=== PATIENT | female | born 1950 | race Caucasian/White ===

== ENCOUNTER 2018-10-28 22:31 | Inpatient (IN) ==
[2018-10-28] MEDS ORDERED: MORPHINE IV ONE (23:21)
[2018-10-28] MEDS ORDERED: ZOFRAN IV ONE (23:21)
[2018-10-28] MEDS ORDERED: NS 1,000 ML IV ONE (23:22)
[2018-10-29 00:01] LABS: BASO# 0.02 X1000 (0.0-0.2); BASO% 0.1 % (0.0-0.8); EOS# 0.18 X1000 (0.0-0.7); EOS% 1.2 % (0.0-10.0); HEMATOCRIT 40.6 % (37.0-47.0); HEMOGLOBIN 12.8 g/dL (12.0-16.0); LYMPH# 1.67 X1000 (1.2-3.4); LYMPH% 10.8 % (20.5-51.1); MCH 24.4 PG (27-31); MCHC 31.5 g/dL (33-37); MCV 77.3 FL (81-99); MONO# 0.76 X1000 (0.11-0.59); MONO% 4.9 % (1.7-9.3); MPV 10.4 FL (7.4-10.4); NEUT# 12.89 X1000 (1.4-6.5); PLT 410 X1000 (130-400); RBC 5.25 XMIL (4.2-5.4); RDW 20.7 % (11.5-14.5); WBC 15.52 X1000 (4.8-10.8)
[2018-10-29 00:39] LABS: ALB/GLOB RATIO 1.5; ALBUMIN 4.3 g/dL (3.5-5.0); CALCIUM 10.1 mg/dL (8.8-10.2); POTASSIUM 4.4 mmol/L (3.5-5.1); TOTAL BILIRUBIN 0.48 mg/dL (0.20-1.00); TOTAL PROTEIN 7.2 g/dL (6.3-8.3)
--- NOTE | 2018-10-29 03:36 | PROVIDER DOCUMENTATION ---
This chart was entered by Shanique Ryder Scribe, acting as scribe for Primo Stewart MD. HPI-Abdominal Pain/GI Problem - General Chief Complaint: Constipation Stated Complaint: POSS. BOWEL OBSTRUCTION Time Seen by Provider: 10/28/18 22:57 Source: patient Allergies/Adverse Reactions: Patient Allergies Allergy/AdvReac Type Severity Reaction Status Date / Time aspirin AdvReac NAUSEA Verified 05/19/18 04:06 Sulfa (Sulfonamide AdvReac RASH Verified 05/19/18 04:06 Antibiotics) Home Medications: Home Medication List Medication Instructions Recorded Confirmed Last Taken Type Duloxetine [Cymbalta] 60 mg PO DAILY 02/27/14 05/19/18 05/18/18 History Glipizide [Glucotrol] 10 mg PO BID 02/27/14 05/19/18 05/18/18 History Losartan/Hctz [Hyzaar 50/12.5 mg] 1 cap PO DAILY 02/27/14 05/19/18 05/18/18 History Insulin Glargine/Lixisenatide 30 units SQ DAILY 04/27/18 05/19/18 05/18/18 History [Soliqua 100 Unit-33 Mcg/ml Pen] Metformin [Glucophage] 1,500 mg PO DAILY 04/27/18 05/19/18 05/18/18 History Fluticasone 50 Mcg Nasal Drums 2 spray DANIELA DAILY 04/28/18 05/19/18 05/18/18 History [Flonase] Hydrocodone/APAP 5 mg/325 mg 1 tab PO 4XDAY 04/28/18 05/19/18 05/18/18 History [Downey-5] Budesonide/Formoterol Inhaler 2 puff INH RTBID 04/29/18 05/19/18 05/18/18 History [Symbicort 160/4.5 Microgm Inhaler] Amlodipine [Norvasc] 5 mg PO HS #60 tab 05/03/18 05/19/18 05/18/18 Rx Apixaban [Eliquis] 5 mg PO BID #60 tab 05/03/18 05/19/18 05/18/18 Rx Diltiazem C.d. [Cardizem Cd] 120 mg PO DAILY #30 cap 05/03/18 05/19/18 05/18/18 Rx Docusate Sodium [Colace] 100 mg PO BID #60 cap 05/19/18 Unknown Rx - History of Present Illness-ABD Nature of Presenting Problems: Pt is 68/F presenting to ED w/ c/o abd pain, constipation and vomiting for the last 4 days. She reports that she has taken metamucil, milk of magnesia and magnesium citrate without any relief. Pt saw PCP yesterday Abdominal Pain Onset Location: reports: epigastric Pain Radiation: reports: no radiation Quality of Pain: reports: aching Severity in ED: reports: moderate Onset/Duration: reports: 5 days ago Timing: reports: still present Activities at Onset: reports: none Exposure to sick contacts?: No Modifying Factors: improves with: nothing Associated Symptoms: reports: constipation, nausea, vomiting. denies: diarrhea , fever/chills Last BM: unsure Dark Stools Present?: reports: none noticed Rectal Bleeding: reports: none Rectal Pain: reports: none Emesis Description: reports: other (yellow) Bruising or Bleeding Gums?: No Similar Symptoms Previously?: No Recently seen or treated by another doctor?: No Review of Systems - Adult - REVIEW OF SYSTEMS - ADULT Constitutional: reports: no symptoms reported. denies: chills, fever Eyes: reports: no symptoms reported Ears, Nose, Mouth & Throat: reports: no symptoms reported Cardiovascular: reports: no symptoms reported. denies: chest pain, edema Respiratory: reports: no symptoms reported Gastrointestinal: reports: abdominal pain, constipation, nausea, vomiting. denies: hematemesis, diarrhea Genitourinary: reports: no symptoms reported Musculoskeletal: reports: no symptoms reported Integumentary: reports: no symptoms reported Neurological: reports: no symptoms reported Psychiatric: reports: no symptoms reported Endocrine: reports: no symptoms reported Hematologic/Lymphatic: reports: no symptoms reported Allergic/Immunologic: reports: no symptoms reported All Other Systems: Reviewed and Negative Past History - Adult - PAST MEDICAL HISTORY-ADULT Review of Records: reports: Old Records Reviewed, Nursing Assessment Review, Medications Reviewed, Social history reviewed & non-contributory. Major Childhood Illnesses: reports: denies history Cardiovascular: reports: HTN Respiratory: reports: COPD Gastrointestinal: reports: denies history Obstetrical/Gynecological: reports: denies history Genitourinary: reports: denies history Musculoskeletal: reports: chronic pain Neurological: reports: denies history Psychiatric: reports: depression Endocrine/Immune: reports: Diabetes Other Conditions: reports: denies history - PRIOR SURGERIES/PROCEDURES Surgical/Procedure History: reports: cholecystectomy, orthopedic (extremity) - PRIOR HOSPITALIZATIONS Prior Hospitalizations: reports: none - IMMUNIZATION STATUS Childhood Immunizations: See Nurse Assessment Flu Vaccine: See Nurse Assessment - FAMILY HISTORY Family History: reviewed, not pertinent - SOCIAL HISTORY Smoking: quit greater than 1 year Substance Use: none/never Alcohol Use Frequency: occasionally Living Situation: family Physical Exam-General - PHYSICAL EXAM-ADULT Initial Vital Signs Reviewed: Yes - CONSTITUTIONAL General Appearance: appears well, alert, mild distress - EYES Eyes: PERRL/EOMI, pink conjunctivae - HEAD, EARS, NOSE, MOUTH & THROAT HENMT: normocephalic/atraumatic, moist mucous membranes, normal ENT inspection, TMs normal, pharynx normal - NECK Neck: non-tender, full range of motion, supple, normal inspection - RESPIRATORY Respiratory: chest non-tender, lungs clear, normal breath sounds - CARDIOVASCULAR Cardiovascular: normal peripheral pulses, regular rate, rhythm - GASTROINTESTINAL (ABDOMEN) Abdominal Exam: normal bowel sounds, non tender, soft - LYMPHATIC Lymphatic: no adenopathy - MUSCULOSKELETAL Extremity: normal range of motion, non-tender, normal gait, normal inspection - SKIN Integumentary: normal color, warm/dry - NEUROLOGIC Neurologic: grossly normal - PSYCHIATRIC Psych/Mental Status: normal mood/affect, normal thought content, normal thought process, oriented x 3 Progress - PLAN OF CARE/RESULTS Progress/Plan/Lab Results: Vital Signs - 8 hr 10/28/18 22:42 Temperature 97.8 F Pulse Rate 90 Respiratory Rate 18 Blood Pressure 179/62 O2 Sat by Pulse Oximetry 86 L Orders Category Date Time Status CT ABD/PELVIS W/PO AND IV CON [CT] Stat Exams 10/28/18 23:20 Ordered CBC WITH ELECTRONIC DIFF [HEME] Stat Lab 10/28/18 23:18 Uncollected COMPREHENSIVE METABOLIC PANEL [CHEM] Stat Lab 10/28/18 23:18 Uncollected LACTATE, PLASMA [CHEM] Stat Lab 10/28/18 23:18 Uncollected LIPASE [CHEM] Stat Lab 10/28/18 23:18 Uncollected TROPONIN T Stat Lab 10/28/18 23:20 Uncollected UA [URINALYSIS] [URINALYSIS] Stat Lab 10/28/18 23:18 Uncollected 0.9% Sodium Chloride Inj [Ns] 1,000 ml Med 10/28/18 23:22 Active IV 999 mls/hr Morphine Med 10/28/18 23:21 Discontinued 4 mg IV NOW ONE Ondansetron [Zofran] Med 10/28/18 23:21 Discontinued 4 mg IV NOW ONE CT shows obstruction of large ascending colon, will place NG tube and admit Result Diagrams: 10/28/18 23:30 10/28/18 23:30 Departure - Departure Date of Disposition Decision: 10/29/18 Time of Disposition Decision: 03:35 DIAGNOSIS: Large bowel obstruction Disposition: ADMITTED INPATIENT 09 Certified Medical Emergency: Emergent Condition: Stable Referrals and Follow-Ups: Wicho Ness MD [Primary Care Provider] - - Critical Care Note This patient required my direct & personal management of CC.: No Attestation - Physician/ PUMA Attestation Patient care was provided by Advanced Practice Provider:: No The physician spent face to face time with patient:: Yes Advanced Practice Provider documentation review:: Supervising physician onsite and consulted in the evaluation and care of this patient. The physician did have a face to face encounter with the patient. This chart was documented by the indicated scribe, (Shanique Ryder, Scribe) and accurately reflects the services I performed and decisions made by me, Primo Stewart MD, as attested by the provider's signature.
[2018-10-29 03:59] LABS: URINE SOURCE CLEAN CATCH
[2018-10-29 04:10] LABS: BILIRUBIN URINE NEGATIVE (NEGATIVE); BLOOD URINE NEGATIVE (NEGATIVE); COLOR YELLOW; GLUCOSE URINE NEGATIVE (NEGATIVE); KETONE URINE NEGATIVE (NEGATIVE); LEUKOCYTES URINE NEGATIVE (NEGATIVE); NITRITE URINE NEGATIVE (NEGATIVE); PROTEIN URINE TRACE mg/dL (NEGATIVE); SP GRAVITY URINE 1.036; TURBIDITY URINE CLEAR (CLEAR); UR EPITHELIAL CELLS <10 /HPF (<10); URINE BACTERIA NEGATIVE /HPF; URINE RBC <10 /HPF (<10); URINE WBC <10 /HPF (<10); UROBILINOGEN URINE NORMAL (NORMAL)
[2018-10-29] MEDS ORDERED: ZOSYN 3.375 GM in NS 50 ML IV ONE (04:38)
[2018-10-29] MEDS ORDERED: TYLENOL PO PRN (07:08)
[2018-10-29] MEDS: HUMALOG SUBQ SCH ×4 (07:08→21:51)
[2018-10-29] MEDS: NS 1,000 ML IV SCH ×3 (07:08→21:52)
--- NOTE | 2018-10-29 07:26 | HISTORY AND PHYSICAL ---
Patient of Dr. Wicho Ness. REASON FOR ADMISSION: One week history of nausea and vomiting and abdominal pain of 2 days. Ms. Juana Marti is a 68-year-old woman with past medical history of COPD and home O2, 3 liters, hypertension, type 2 diabetes, chronic kidney disease stage 3A, hiatal hernia, carpal tunnel syndrome and anxiety and depression. About a week ago developed intractable nausea and vomiting preceded by some abdominal pain. After vomiting, she said she felt a little bit better. However, 2 days later, she started having recurrent diffuse abdominal cramping pain and saw her primary care physician who ordered an abdominal x-ray. He informed her that she had a lot of stool and was probably constipated. So, she tried taking MiraLAX and mag citrate and threw these up. She also tried enemas without any success. As the days rolled on, the pain which was intermittent continued to escalate in intensity and she was unable to keep any food down. She then presented to the ER to be evaluated further for this. Her last bowel movement was approximately a week ago. She has denied any bleeding from any orifice. She denies any fever or chills per se. She denies any genitourinary complaints. Her last colonoscopy was 4-5 years ago. She denies any weight loss. She denies any cardiorespiratory complaints or neurological complaints. Denies any genitourinary complaints. No polyuria or polydipsia. No new arthralgia or rash. REVIEW OF SYSTEMS: A 12 system review was done. Positive findings per HPI. ALLERGIES: Aspirin and sulfa. HOME MEDICATIONS: List has not been reconciled. PAST MEDICAL HISTORY: The patient does have a history of paroxysmal atrial fibrillation. FAMILY HISTORY: Negative for cancer, heart disease and type 2 diabetes. SURGICAL HISTORY: She has had cholecystectomy. She has had pins in her great toe. She had full teeth extraction for dentures. She has had carpal tunnel surgery. SOCIAL HISTORY: Stopped smoking about 6 years ago. No alcohol or illicit drug use. She is , lives with her . LAB WORK: CT scan of the abdomen showed possible obstruction of the ascending colon with some degree of small bowel dilatation. Urinalysis is clear. AST, ALT 193 and 120 respectively. Alkaline phosphatase 213. Troponin negative. Lactate normal. Lipase normal. Glucose 135. White count 15,000, H and H 12 and 40. Platelets 410,000. RDW of 20, 83% neutrophils. PHYSICAL EXAMINATION: VITAL SIGNS: Blood pressure 161/49, respiratory rate is 18, heart rate is 67, temperature is 97.8 degrees, 92% on room air. GENERAL: She is a middle-aged woman who is in mild distress from abdominal pain. She is alert and oriented to person, place and time. HEENT: Head is normocephalic, atraumatic. Eyes: PERRL, EOMI. She is nonicteric, mildly pale. ENT and oropharyngeal exam shows mild xerostomia but otherwise no exudates or erythema. No central cyanosis. NECK: Short and thick. No JVD, carotid bruits. No thyromegaly. CHEST: Decreased air entry both lung arevalo with scattered expiratory wheezes. CARDIOVASCULAR: First and second heart sounds heard. No gallops, murmurs or rubs. Rhythm is irregular. ABDOMEN: Slightly distended, soft, diffusely tender with no rebound or guarding. The tenderness is most noticeable in the right lower quadrant area. No mass or megaly appreciated. Bowel sounds are hyperactive. RECTAL: Exam is deferred. EXTREMITIES: The patient has good distal pulse volumes in all extremities. Rhythm is regular, symmetrical. No edema, clubbing or peripheral cyanosis. NEUROLOGICAL: No focal deficits. SKIN: Intact with no breakdown or erythema. Good turgor. MUSCULAR: Grossly normal. ASSESSMENT: 1. Ascending colon obstruction. 2. COPD. 3. Type 2 diabetes. 4. Hypertension. 5. Paroxysmal atrial fibrillation. 6. Transaminitis ? probably secondary to intractable vomiting. PLAN: Patient will have IV fluid resuscitation to make up for volume losses from GI losses. We will start patient empirically on antibiotics for possible maybe stercoral colitis from obstruction. Consult General Surgery for possible surgical intervention and may consider GI for possible colonoscopy if patient is cleaned out. Treat patient symptomatically with pain medication and antiemetics. Blood sugars will be managed with sliding scale and Lantus. For rate control, patient may benefit from IV Digoxin with low dose pushes of Cardizem. Anticoagulation will be held in the interim. cc: MD iWcho English
--- NOTE | 2018-10-29 08:01 | Diag Imaging Result Doc PS360 ---
CHEST/ABD TUBE PLACEMENT - 10/29/2018 INDICATION: check NG tube placement COMPARISON: 10/27/2018 FINDINGS: There is a nasogastric tube in good position with the tip in the stomach. IMPRESSION: Nasogastric tube in the stomach. Electronically signed by Felice Chambers 10/29/2018 7:58 AM
--- NOTE | 2018-10-29 08:05 | Diag Imaging Result Doc PS360 ---
EXAM: CT ABD/PELVIS W/PO AND IV CON INDICATION: n/v, no BM, r/o SBO TECHNIQUE: This exam was performed using automated exposure control, adjustment of mA or kV according to patient size, and/or use of iterative reconstruction technique. COMPARISON: 05/19/2018 FINDINGS: There are emphysematous changes at the lung bases. There is mild bibasilar subsegmental atelectasis and/or scarring. There has been a prior cholecystectomy. The liver and spleen are grossly unremarkable. There is mild pancreatic atrophy. There is a stable tiny fat density left adrenal nodule, likely a myelolipoma. The kidneys and urinary bladder are essentially unremarkable. The reproductive tract is grossly unremarkable as imaged. The appendix is normal. There is focal narrowing of the ascending colon with subtle wall thickening (see image 74, series 3). Proximal to this, the colon is mildly dilated. There is also multiple mild to moderately distended loops of small bowel including the terminal ileum. There is mild pericolonic fat stranding in the right lower quadrant. There is uncomplicated sigmoid colonic diverticulosis. The remainder of the GI tract is grossly unremarkable. There is small volume free fluid layering in the pelvis. IMPRESSION: 1.Mild to moderate partial bowel obstruction. The point of obstruction appears to be the ascending colon where there is focal narrowing and subtle wall thickening. Infection or underlying neoplastic process should be considered. 2.Small volume of free fluid layering in the pelvis. 3.Other incidental/nonacute findings detailed above. Electronically signed by Ochoa Burton 10/29/2018 8:03 AM
[2018-10-29] MEDS: BASAGLAR SUBQ SCH ×2 (08:50→09:00)
[2018-10-29] MEDS: DUONEB (A & A) INH SCH ×3 (09:48→22:35)
--- NOTE | 2018-10-29 14:16 | Diag Imaging Result Doc PS360 ---
EXAM: BARIUM ENEMA INDICATION: colonic stricture TECHNIQUE: Water-soluble iodinated contrast was administered per rectum under fluoroscopy. Spot images of the opacified colon were obtained. COMPARISON: CT dated 10/29/2018. FINDINGS: The sigmoid, descending, and transverse colon are normal in course and caliber with no filling defects or strictures identified. There is abrupt narrowing involving the ascending colon just proximal to the hepatic flexure and no contrast could be passed proximal to this. (See page 14 of 20). This corresponds to the stricture seen on the recent CT. Proximal to this, there is stool in the distended cecum and ascending colon. IMPRESSION: Abrupt narrowing involving the distal ascending colon corresponding to the stricture seen on CT with no contrast egress proximal to this. Electronically signed by Ochoa Burton 10/29/2018 2:14 PM
[2018-10-29] MEDS: ZOSYN 3.375 GM in NS 50 ML IV SCH ×2 (14:26→21:51)
[2018-10-29] MEDS: ZOFRAN IV PRN (14:53)
[2018-10-29] MEDS: MORPHINE IV PRN ×3 (14:53→22:18)
--- NOTE | 2018-10-29 15:30 | GENERAL SURGERY CONSULTATION ---
DATE: 10/29/2018 REQUESTING PHYSICIAN: Hospitalist. REASON FOR CONSULTATION: Concerning possible colonic stricture. HISTORY OF PRESENT ILLNESS: A 68-year-old female presenting with a couple day history of abdominal pain. She was seen in the emergency department and had a CT scan that showed a potential colonic stricture at the ascending colon. She has been admitted. She does describes recurrent diffuse abdominal cramping. She reports that her bowel movements have always been small. She had a colonoscopy at least [address] Pat and apparently no pathology at that point. I have been asked to weigh an opinion. She is feeling a little bit better since admission. PAST MEDICAL HISTORY: Includes COPD with home oxygen, hypertension, diabetes mellitus type 2, chronic kidney disease, hiatal hernia, carpal tunnel syndrome, anxiety and depression. PAST SURGICAL HISTORY: Includes cholecystectomy, previous orthopedic surgery, carpal tunnel surgery. HOME MEDICATIONS: Currently being reconciled. ALLERGIES: Aspirin and sulfa. FAMILY HISTORY: Negative for cancer, heart disease, or diabetes. SOCIAL HISTORY: Stopped smoking 6 years ago. REVIEW OF SYSTEMS: A full 10 point review of systems obtained, negative except as specified in the HPI. PHYSICAL EXAMINATION: Vital Signs: Patient is currently afebrile. Her vital signs are stable. General: No acute distress. Resting comfortably. female, looks stated age. HEENT: Normocephalic, atraumatic. Pupils equal, round, reactive to light. Mucous membranes moist. Oropharynx benign. Neck: Supple. Trachea midline. Cardiovascular: Regular rate and rhythm. Lungs: Grossly clear. Abdomen: Soft, nondistended. Minimal tenderness to palpation. Extremities: Moves all extremities. Neurologic: Grossly intact. Skin: No signs of jaundice. Vascular: All extremities perfused. LABORATORY DATA: Reviewed. Of note, her white blood cell count is 15. Remainder of labs reviewed. CT scan independently reviewed and radiology report reviewed, discussed with radiologist. ASSESSMENT AND PLAN: A 68-year-old female with possible colonic stricture. Possible colonic stricture. At this point, given this setting, we will try to get a barium enema to define if there is a stricture or mass better. Otherwise, continue current treatment with bowel decompression. She does have what looks like fecalization of the cecum and she might be chronically obstructed in this area. She may need surgical resection. Would like to define the anatomy better. This was all discussed with the patient. I have discussed it with Dr. Chambers with Radiology, who is going to try to do the barium enema today. cc: Steve Burns MD
--- NOTE | 2018-10-29 23:29 | GENERAL SURGERY PROGRESS NOTE ---
DATE: 10/29/2018 Reviewed barium enema. She does have a stricture looks like in her ascending colon. The etiology of this is unclear. This could represent stricture from ischemia, diverticulitis or even potentially a cancer. The patient did tell me that she has been on Eliquis and she last took it 2 days ago. I think ultimately she will require some degree of resection of this area. In the meantime we can monitor and potentially plan on surgery on Thursday. cc: Steve Burns MD MTDD
[2018-10-30] MEDS: ZOSYN 3.375 GM in NS 50 ML IV SCH ×4 (02:01→20:13)
[2018-10-30] MEDS: DUONEB (A & A) INH SCH ×4 (03:05→21:25)
[2018-10-30] MEDS: MORPHINE IV PRN ×6 (05:57→23:59)
[2018-10-30 07:16] LABS: BASO# 0.01 X1000 (0.0-0.2); BASO% 0.1 % (0.0-0.8); EOS# 0.13 X1000 (0.0-0.7); EOS% 1.6 % (0.0-10.0); HEMATOCRIT 37.7 % (37.0-47.0); HEMOGLOBIN 11.3 g/dL (12.0-16.0); LYMPH# 0.91 X1000 (1.2-3.4); MCH 24.1 PG (27-31); MCV 80.6 FL (81-99); MONO# 0.41 X1000 (0.11-0.59); MPV 10.4 FL (7.4-10.4); NEUT% 82.3 % (42.2-75.2); PLT 399 X1000 (130-400); RBC 4.68 XMIL (4.2-5.4); RDW 20.1 % (11.5-14.5); WBC 8.26 X1000 (4.8-10.8)
[2018-10-30] MEDS: HUMALOG SUBQ SCH ×3 (07:39→17:33)
[2018-10-30 07:40] LABS: HEMOGLOBIN A1C 6.1 % (4.8-6.0)
[2018-10-30 07:43] LABS: AGAP 11; ALB/GLOB RATIO 1.2; ALBUMIN 3.5 g/dL (3.5-5.0); ALKALINE PHOSPHATASE 339 U/L (32-104); BUN 8 mg/dL (8-22); CALCIUM 9.2 mg/dL (8.8-10.2); CHLORIDE 100 mmol/L (98-107); COSMO 275; CREATININE 0.9 mg/dL (0.5-0.9); ESTIMATED GFR > 60; GLUCOSE 87 mg/dL (70-104); GOT 235 U/L (10-30); GPT 226 U/L (10-36); MAGNESIUM 1.6 mg/dL (1.5-2.7); POTASSIUM 4.2 mmol/L (3.5-5.1); SODIUM 139 mmol/L (136-145); TCO2 28 mmol/L (25-35); TOTAL BILIRUBIN 1.28 mg/dL (0.20-1.00); TOTAL IRON 56 ug/dL (49-151); TOTAL PROTEIN 6.4 g/dL (6.3-8.3)
[2018-10-30 07:59] LABS: TSH 1.79 uIUmL (0.27-4.20)
[2018-10-30] MEDS: BASAGLAR SUBQ SCH (08:55)
--- NOTE | 2018-10-30 11:26 | PROGRESS NOTE ---
DATE: 10/30/2018 SUBJECTIVE: Patient reports feeling fine. Denies any fever, chills, nausea, or vomiting. The patient reports having some brown colored bowel movements, and also she is passing gas. OBJECTIVE: Vital Signs: Temperature 98.3 degrees, heart rate 80, respiratory rate 18, blood pressure 158/59, and O2 saturation 95% on 2 L nasal cannula. General: This is a very pleasant, chronically ill-looking, 68-year-old female lying in bed in no acute distress. HEENT: Head is normocephalic and atraumatic. Neck: No JVD noted. No carotid bruits. No lymphadenopathy. No thyromegaly. Cardiovascular: S1, S2 heard. No murmurs, gallops, or rubs. Regular rate and rhythm. Respiratory: Decreased air entry globally. Minimal expiratory wheezing noted. Patient is not using any accessory muscles or having work of breathing. Abdomen: A little bit distended. There are no signs of peritoneal irritation. Tenderness to palpation in the right lower quadrant. Bowel sounds are hyperactive. Extremities: No clubbing, cyanosis, or edema. Peripheral pulses present in both legs. Neurological: Patient alert and oriented x3. Moves 4 extremities. LABORATORY DATA: White cell count 8.26, hemoglobin 11.3, hematocrit 37.7, and platelets 399,000. Normal BMP. Liver function test showed worsening AST and ALT elevation with elevation of alkaline phosphatase. The barium enema showed abrupt narrowing involving the distal ascending colon corresponding to a stricture seen on the CT with no contrast that progressed proximal to this. ASSESSMENT AND PLAN: 1. Ascending colon obstruction. The CT scan on the barium enema showed both strictures in the ascending colon. Dr. Burns from General Surgery has been consulted. I am planning to do possible surgery next Thursday. The patient reports she has taken last time Eliquis probably last Thursday which will be a week from now, but she is not completely sure. I think she should be fine to go for any procedure on Thursday. The patient reports passing gases with brownish-colored stools. We will continue to monitor this patient closely. 2. Transaminitis, that condition is getting worse. The patient reports has history of spot in the liver so our first exam that we are going to order is abdominal ultrasound to see if there are any lesions down there that the patient mentioned. We are going to do a CMP daily. If there is no clear imaging on the ultrasound, we may need to do MRCP on Thursday. 3. COPD. Patient is not in any exacerbation. We will provide breathing treatment as needed only. 4. Diabetes mellitus type 2. We will continue with Accu-Chek before meals, and also at bedtime, and sliding scale insulin as well. 5. Hypertension. Blood pressure is under control. The patient received medication IV p.r.n. We will continue to monitor. We will treat high blood pressure with p.r.n. medications like hydralazine. 6. Paroxysmal atrial fibrillation. At this point, patient's heart rhythm is fine in sinus rhythm. We will continue to monitor. 7. COPD not in exacerbation. We will provide breathing treatment as needed only. 8. Disposition. At this point, GI is going to be consulted. We will follow recommendations from them. cc: Sixto Morton MD MTDD
--- NOTE | 2018-10-30 12:03 | Diag Imaging Result Doc PS360 ---
EXAM: US ABDOMEN-COMPLETE INDICATION: transaminitis COMPARISON: None. FINDINGS: There has been a prior cholecystectomy. The common bile duct is normal in diameter. The liver is grossly unremarkable. No hepatic mass is identified Portal venous flow is hepatopetal. The pancreas is partially obscured by gas. The visualized portion is unremarkable. The distal aorta is also obscured. The remainder of the aorta and IVC are unremarkable. The spleen is unremarkable. The kidneys are grossly unremarkable. A right pleural effusion is noted incidentally. IMPRESSION: Incidental right pleural effusion. Unremarkable abdominal ultrasound, otherwise. Electronically signed by Ochoa Burton 10/30/2018 12:00 PM
--- NOTE | 2018-10-30 12:47 | GENERAL SURGERY PROGRESS NOTE ---
DATE: 10/30/2018 SUBJECTIVE: Patient seems to be doing okay. Discussed with her yesterday about the findings of the barium enema, which does show a stricture. Otherwise, she is doing okay. OBJECTIVE: Vital Signs: Patient is currently afebrile. Her vital signs are stable. General: No acute distress. HEENT: Normocephalic, atraumatic. Pupils equal, round, reactive to light. Mucous membranes moist. Oropharynx benign. Neck: Supple. Trachea midline. Cardiovascular: Regular rate and rhythm. Lungs: Grossly clear. Abdomen: Soft and nontender at this time. Extremities: Moves all extremities. Neurologic: Grossly intact. Skin: No signs of jaundice. Vascular: All extremities perfused. LABORATORY DATA: None this morning as of yet. Barium enema as noted yesterday. ASSESSMENT AND PLAN: A 68-year-old female with colonic stricture in the ascending colon of unknown etiology. Colonic stricture. At this time, we will plan on surgical intervention on Thursday. She has been taking Eliquis. We will need to give at least 5 days until that is out of her system, but plan on surgical intervention on that day. cc: Steve Burns MD
[2018-10-30] MEDS: NS 1,000 ML IV SCH (14:12)
--- NOTE | 2018-10-30 17:09 | CONSULTATION ---
DATE OF CONSULTATION: 10/30/2018 REASON FOR CONSULTATION: Colonic obstruction. 68-year-old lady with history of COPD on home oxygen presented with abdominal distention. Took some MiraLAX and magnesium titrate and had nausea and vomiting unable to keep anything down. She had a colonoscopy about 5 years ago. No previous history of any problems with this. REVIEW OF SYSTEMS: Otherwise negative. ALLERGIES: Aspirin and sulfa. HOME MEDICATION: Reconciled. PAST MEDICAL HISTORY: PAD, COPD, constipation. SURGICAL HISTORY: Cholecystectomy. SOCIAL HISTORY: Used to smoke until 6 years ago. PHYSICAL EXAMINATION: Revealed this lady in no acute distress. Blood pressure 160/49, respiratory rate 18, heart rate 67, temperature 97 degrees, 92%.HEENT: Mild conjunctival pallor. Neck: Supple, trachea midline. Heart and lungs: Normal. Abdomen: Distended, some tenderness in the right upper quadrant. Bowel sounds are present. Extremities: Unremarkable. LABORATORY DATA: Shows LFTs are slightly elevated. White count is 15 K and hemoglobin and hematocrit are normal and had a barium enema showed a high-grade stricture in the ascending colon proximal to the hepatic flexure which is again seen in the CT scan of the abdomen. On the CT the liver appears to be normal with no evidence of metastatic disease. IMPRESSION: 1. Ascending colon high grade obstruction who has improved bowel movements now with prep. This could be more likely neoplastic. Will plan on doing a colonoscopy Thursday so Dr. Burns can do right hemicolectomy even otherwise the right colon is probably distended, she is better off with right hemicolectomy. 2. Chronic obstructive pulmonary disease. 3. Diabetes. 4. Hypertension. 5. Peripheral artery disease. 6. Elevated liver function tests being investigated. We will start her on MiraLAX, possible colonoscopy Thursday. cc: Librado Bruno MD
[2018-10-31] MEDS: NS 1,000 ML IV SCH ×5 (00:01→21:46)
[2018-10-31] MEDS: HUMALOG SUBQ SCH ×5 (01:33→21:54)
[2018-10-31] MEDS: DUONEB (A & A) INH SCH ×4 (03:18→21:05)
[2018-10-31] MEDS: ZOSYN 3.375 GM in NS 50 ML IV SCH ×4 (04:04→20:21)
[2018-10-31] MEDS: MORPHINE IV PRN ×2 (04:15→08:12)
[2018-10-31] MEDS: ZOFRAN IV PRN ×4 (04:16→21:47)
[2018-10-31] MEDS ORDERED: LABETALOL IV ONE (05:28)
[2018-10-31 06:44] LABS: BASO# 0.02 X1000 (0.0-0.2); BASO% 0.3 % (0.0-0.8); EOS# 0.13 X1000 (0.0-0.7); EOS% 1.8 % (0.0-10.0); HEMATOCRIT 36.5 % (37.0-47.0); HEMOGLOBIN 10.7 g/dL (12.0-16.0); IMM GRAN# 0.03 X1000 (0.0-0.04); IMM GRAN% 0.4 % (0.0-0.5); LYMPH# 0.93 X1000 (1.2-3.4); LYMPH% 13.2 % (20.5-51.1); MCH 23.6 PG (27-31); MCHC 29.3 g/dL (33-37); MCV 80.4 FL (81-99); MONO# 0.45 X1000 (0.11-0.59); MONO% 6.4 % (1.7-9.3); MPV 10.1 FL (7.4-10.4); NEUT# 5.47 X1000 (1.4-6.5); NEUT% 77.9 % (42.2-75.2); PLT 379 X1000 (130-400); RBC 4.54 XMIL (4.2-5.4); RDW 19.8 % (11.5-14.5); WBC 7.03 X1000 (4.8-10.8)
--- NOTE | 2018-10-31 06:48 | GENERAL SURGERY PROGRESS NOTE ---
DATE: 10/31/2018 SUBJECTIVE: Patient seems to be doing okay. Reviewed notes from GI, there is a plan for colonoscopy tomorrow. OBJECTIVE: Vital Signs: Patient is currently afebrile. Her vital signs are stable. General: No acute distress. HEENT: Normocephalic, atraumatic. Pupils equal, round, reactive to light. Mucous membranes moist. Oropharynx benign. Neck: Supple. Trachea midline. Cardiovascular: Regular rate and rhythm. Lungs: Grossly clear. Abdomen: Soft, nontender, nondistended at this point. Extremities: Moves all extremities. Neurologic: Grossly intact. Skin: No signs of jaundice. Vascular: All extremities perfused. LABORATORY: None this morning as of yet. ASSESSMENT AND PLAN: A 68-year-old female with stricture at the ascending colon. Stricture of the ascending colon. At this time, continue current treatment. There is a plan for her to have a colonoscopy tomorrow. We will follow the results. She is still on the schedule for surgery from my point of view on Thursday. cc: Steve Burns MD
[2018-10-31 07:32] LABS: AGAP 12; BUN 10 mg/dL (8-22); CALCIUM 8.7 mg/dL (8.8-10.2); CHLORIDE 100 mmol/L (98-107); COSMO 279; CREATININE 0.8 mg/dL (0.5-0.9); ESTIMATED GFR > 60; GLUCOSE 174 mg/dL (70-104); POTASSIUM 4.2 mmol/L (3.5-5.1); SODIUM 138 mmol/L (136-145); TCO2 26 mmol/L (25-35)
[2018-10-31] MEDS: BASAGLAR SUBQ SCH (09:19)
[2018-10-31 10:47] LABS: ALB/GLOB RATIO 1.1; ALBUMIN 3.4 g/dL (3.5-5.0); DIRECT BILIRUBIN 0.3 mg/dL (0.00-0.20); TOTAL BILIRUBIN 0.55 mg/dL (0.20-1.00); TOTAL PROTEIN 6.4 g/dL (6.3-8.3)
[2018-10-31] MEDS ORDERED: SODIUM CHLORIDE 0.9% INJ PRN (10:50)
[2018-10-31] MEDS: DILAUDID IV PRN ×3 (11:09→21:46)
--- NOTE | 2018-10-31 11:37 | PROGRESS NOTE ---
DATE: 10/31/2018 SUBJECTIVE: Patient is not doing good today. Patient started complaining of back pain that I am suspecting is coming probably from the descending colon. She was placed on GoLYTELY for preparation for colonoscopy tomorrow, but she did vomit so NG tube has been placed to suction. OBJECTIVE: Vital Signs: Temperature 97.9 degrees, heart rate 87, respiratory rate 18, blood pressure 155/59, O2 saturation 97% on 3 L nasal cannula. General: This is a chronically ill- looking 68-year-old female, lying in bed, in no acute distress. HEENT: Head is normocephalic, atraumatic. Neck: No JVD noted. No carotid bruits. No lymphadenopathy. No thyromegaly. Cardiovascular: S1, S2 heard. No murmurs, gallops, or rubs. Regular rate and rhythm. Respiratory: Decreased air entry globally with almost no wheezing in both pulmonary bases. Patient not using any accessory muscles or having work of breathing. Abdomen: Soft. A little bit more distended in comparing with yesterday. There are no signs of peritoneal irritation. Tender to palpation in the left lower quadrant. Extremities: No clubbing, cyanosis, or edema. Peripheral pulses present in both legs. Neurological: Patient is alert and oriented x3. Moves 4 extremities. LABORATORY DATA: White cell count 7.03, hemoglobin 10.7, hematocrit 36.5, platelets 379,000. Normal BMP. AST 100, ALT 170, alkaline phosphatase 283. ASSESSMENT AND PLAN: 1. Ascending colon obstruction, most likely secondary to neoplastic process. Gastroenterology has been consulted, and they are planning to do a colonoscopy tomorrow. Unfortunately the GoLYTELY that she has been given was not tolerated by the patient, and she vomited so the NG tube has been placed to suction. On the other side, Dr. Burns from General Surgery is planning to do a right hemicolectomy on Thursday. We will follow recommendations. From my standpoint, I will change pain medications to Dilaudid 1 mg IV q.3 h. We will continue to monitor this patient closely. 2. Transaminitis. This condition is getting better. I am not sure about the reason why she has this problem. Considering her history of colon cancer, I think we may suspect liver metastasis. At this point, with a CT scan that did not show anything abnormal, I do prefer to do an MRI of the abdomen to see if there any lesions on there. 3. Chronic obstructive pulmonary disease (COPD). Patient is not in any exacerbation. We will provide breathing treatments as needed only for shortness of breath. 4. Diabetes mellitus, type 2. We will continue with Accu-Cheks before meals and also at bedtime and sliding scale insulin as well. 5. Hypertension. Blood pressure is under control. We will continue with p.r.n. medications, in this case hydralazine. 6. Paroxysmal atrial fibrillation. Heart rhythm is sinus. We will continue to monitor. DISPOSITION: At this point, we will monitor this patient closely. Surgery is scheduled for Thursday, a hemicolectomy. Gastroenterology is also following this patient. We will do an MRI tomorrow for transaminitis, most presumable secondary to liver metastasis. cc: Sixto Morton MD
[2018-10-31] MEDS: ZOSYN ONE ×2 (15:08→17:21)
[2018-10-31] MEDS ORDERED: GOLYTELY PO ONE (16:00)
[2018-10-31] MEDS: PHENERGAN IV PRN (17:43)
[2018-11-01] MEDS: DILAUDID IV PRN ×2 (01:07→05:11)
[2018-11-01] MEDS: PROTONIX IV SCH ×4 (01:15→21:06)
[2018-11-01] MEDS: SODIUM CHLORIDE 0.9% INJ SCH ×3 (01:15→20:57)
[2018-11-01] MEDS: ZOSYN 3.375 GM in NS 50 ML IV SCH ×4 (02:45→20:56)
[2018-11-01] MEDS: DUONEB (A & A) INH SCH ×4 (03:30→21:35)
[2018-11-01] MEDS: NS 1,000 ML IV SCH ×3 (05:11→20:56)
[2018-11-01] MEDS: PHENERGAN IV PRN (05:12)
[2018-11-01 06:39] LABS: BASO# 0.02 X1000 (0.0-0.2); BASO% 0.2 % (0.0-0.8); EOS# 0.11 X1000 (0.0-0.7); EOS% 1.3 % (0.0-10.0); HEMATOCRIT 35.7 % (37.0-47.0); HEMOGLOBIN 10.7 g/dL (12.0-16.0); IMM GRAN# 0.02 X1000 (0.0-0.04); IMM GRAN% 0.2 % (0.0-0.5); LYMPH# 1.44 X1000 (1.2-3.4); LYMPH% 16.5 % (20.5-51.1); MCH 24.1 PG (27-31); MCV 80.4 FL (81-99); MONO# 0.59 X1000 (0.11-0.59); MONO% 6.8 % (1.7-9.3); MPV 10.3 FL (7.4-10.4); NEUT# 6.56 X1000 (1.4-6.5); PLT 425 X1000 (130-400); RBC 4.44 XMIL (4.2-5.4); RDW 19.7 % (11.5-14.5); WBC 8.74 X1000 (4.8-10.8)
--- NOTE | 2018-11-01 06:51 | GENERAL SURGERY PROGRESS NOTE ---
DATE: 11/01/2018 SUBJECTIVE: The patient is doing okay. She tried a GoLYTELY prep yesterday, somewhat going down but she is having bowel movements. OBJECTIVE: Vital Signs: The patient is currently afebrile. Her vital signs are stable. General Examination: No acute distress. HEENT: Normocephalic, atraumatic. Pupils equal, round, reactive to light. Mucous membranes moist. Oropharynx benign. Neck: Supple. Trachea midline. Cardiovascular: Regular rate and rhythm. Lungs: Grossly clear. Abdomen: Soft, nondistended, nontender. Extremities: Moves all extremities. Neurologic: Grossly intact. Skin: No signs of jaundice. Vascular: All extremities perfused. Laboratory: Reviewed from yesterday. ASSESSMENT AND PLAN: A 68-year-old female with a colonic stricture. Colonic stricture. At this time, plan for colonoscopy today. We will follow up with the results and we may need to try to send it off a CEA today. Otherwise, continue supportive care. cc: Steve Burns MD MTDD
[2018-11-01 07:23] LABS: AGAP 16; ALB/GLOB RATIO 1.3; ALBUMIN 3.6 g/dL (3.5-5.0); ALKALINE PHOSPHATASE 231 U/L (32-104); BUN 8 mg/dL (8-22); CALCIUM 8.5 mg/dL (8.8-10.2); CHLORIDE 100 mmol/L (98-107); COSMO 280; CREATININE 0.7 mg/dL (0.5-0.9); ESTIMATED GFR > 60; GLUCOSE 109 mg/dL (70-104); GOT 57 U/L (10-30); GPT 130 U/L (10-36); POTASSIUM 3.9 mmol/L (3.5-5.1); SODIUM 141 mmol/L (136-145); TCO2 25 mmol/L (25-35); TOTAL BILIRUBIN 0.32 mg/dL (0.20-1.00); TOTAL PROTEIN 6.3 g/dL (6.3-8.3)
[2018-11-01] MEDS: HUMALOG SUBQ SCH ×4 (10:21→20:56)
[2018-11-01] MEDS: BASAGLAR SUBQ SCH (10:21)
--- NOTE | 2018-11-01 11:30 | GASTROENTEROLOGY PROGRESS NOTE ---
DATE: 11/01/2018 SUBJECTIVE: Patient resting in bed. She has an NG tube in place. It was hooked up to suction this morning because she was nauseous. She had taken about 80% of bowel prep. The bowel prep is still poor per the nursing staff. She is having liquid stools, but it is not clear. I have discussed with the patient and with Dr. Burns. We will schedule her for colonoscopy in the morning. Depending on the results of colonoscopy, the patient is scheduled for possible colon resection around [address] Burns. So we will try to schedule her as the 1st case in the morning with Dr. Moran. OBJECTIVE: Vitals: Temperature of 98.6 degrees, pulse rate of 94, respiratory rate 12, blood pressure 123/87, saturating 98% on 3 L nasal cannula. General Appearance: Moderately built, moderately nourished, lying in bed, in no acute distress. HEENT: Mild pallor. No icterus. NG tube in place. Neck: Supple. Abdomen: Soft, nondistended. No guarding. Extremities: No cyanosis, clubbing. Neurologic: She is alert, awake, oriented x3. LABORATORIES: Hemoglobin and hematocrit is 10.7, 35.7, white count of 8.7, platelet count of 425,000. Sodium 141, potassium 3.9, chloride 100, bicarb 25, anion gap 16, BUN of 8, creatinine 0.7 glucose of 109, calcium 8.5, total bilirubin is 0.32, direct of 0.2, AST 57, ALT 130. Alkaline phosphatase 231, total protein 6.3, albumin 3.6. IMPRESSION AND PLAN: 1. Ascending colon obstruction. We will schedule for colonoscopy tomorrow morning. The patient is scheduled for a possible right colon resection tomorrow by Dr. Burns around 10:00 a.m., so our goal will be to perform a colonoscopy 1st case in the morning by Dr. Moran. In the meanwhile, she will continue on the bowel prep. She will finish her 1st gallon. We will start her on 2nd gallon of GoLYTELY if the bowel prep is still suboptimal. She is currently on NG tube to intermittent suction because of persistent nausea. I have discussed this with Dr. Burns as well as the nursing staff and the patient. 2. Transaminitis. We will continue to watch for now. It may be she needs a liver biopsy at the same time of colon resection. 3. Chronic obstructive pulmonary disease. Aware. She will continue breathing treatments. 4. Type 2 diabetes. Aware. Continue sliding scale insulin. 5. Paroxysmal atrial fibrillation. Aware. 6. Mild anemia. Continue to watch. 7. Gastrointestinal prophylaxis. Protonix twice a day. 8. Continue hydration normal saline 125 mL/hour and she is on antibiotics per the primary care team. 9. We will order a CEA. 10. The above plans were discussed with the patient and nursing staff and Rebecca Bryant. All questions were answered. cc: Deon Benitez MD
[2018-11-01] MEDS ORDERED: CHLORASEPTIC SPRAY MT PRN (12:49)
[2018-11-01] MEDS: ZOFRAN IV PRN (12:54)
--- NOTE | 2018-11-01 13:38 | PROGRESS NOTE ---
DATE: 11/01/2018 SUBJECTIVE: The patient is resting in bed. Patient reports that pain is under control. Denies any other complaint. As per nursing staff, she was trying to be prepared for a colonoscopy but she vomited GoLYTELY yesterday. They tried the day before yesterday and actually yesterday but she vomited. No other complaints noted. OBJECTIVE: Vital Signs: Temperature 98.6 degrees, heart rate 94, respiratory rate 16, blood pressure 123/87, O2 saturation 97% on 2 L nasal cannula. General Examination: This is a chronically ill-looking, 68-year-old, female lying in bed, in no acute distress. HEENT: Head is normocephalic and atraumatic. Mucous membranes are dry. Neck: Supple. No JVD noted. No carotid bruits. No lymphadenopathy. No thyromegaly. Cardiovascular Examination: S1 and S2 heard. No murmurs, gallops, or rubs. Regular rate and rhythm. Respiratory Examination: Decreased air entry globally with no wheezing or crackles in both pulmonary bases. Patient is not using any accessory muscles or having work of breathing. Abdomen: Soft. A little bit more distended in comparing with yesterday but there are no signs of peritoneal irritation. Tender to palpation in the left lower quadrant. Extremities: No clubbing, cyanosis, or edema. Peripheral pulses present in both legs. Neurological Examination: The patient is alert and oriented x3. Moves 4 extremities. Laboratory Data: CBC and BMP reviewed. ASSESSMENT AND PLAN: 1. Ascending colon obstruction, most likely to be neoplastic. Gastroenterology has been consulted. Initially, she was scheduled to have a colonoscopy today but because there was not good preparation, it has been rescheduled for tomorrow morning. Patient has been already scheduled to have a right colon resection by Dr. Burns at around 10 in the morning so gastroenterology is going to do it first thing in the morning. We will continue to prep this patient. We will continue with nasogastric tube to intermittent suction. 2. Transaminitis. There is a suspicion for possible metastasis. We have ordered an MRI of the abdomen to see if there is any metastasis but gastroenterology preferred to wait until surgery to see if we can do a liver biopsy at the same time. 3. Chronic obstructive pulmonary disease. The patient is not having any exacerbation. We will continue to monitor this patient closely. 4. Diabetes mellitus type 2. We will continue with Accu-Chek before meals and also at bedtime. 5. Hypertension. Blood pressure is under control. We will continue with the same management. 6. Paroxysmal atrial fibrillation. At this point, heart rate is in sinus. We will continue to monitor. 7. Disposition. As we mentioned before, tomorrow, first thing in the morning, she is going to have a colonoscopy and around 10 in the morning, she is going to have a right hemicolectomy as per Dr. Burns. We appreciate help from both subspecialties. cc: Sixto Morton MD
[2018-11-01] MEDS ORDERED: GOLYTELY PO ONE (14:00)
[2018-11-01] MEDS ORDERED: AYR NASAL SPRAY NAS PRN (22:20)
[2018-11-02] MEDS: ZOSYN 3.375 GM in NS 50 ML IV SCH ×5 (00:36→22:26)
[2018-11-02] MEDS: DILAUDID IV PRN ×3 (00:36→11:40)
[2018-11-02] MEDS: DUONEB (A & A) INH SCH ×4 (03:40→21:45)
[2018-11-02] MEDS: NS 1,000 ML IV SCH ×4 (06:27→22:29)
[2018-11-02] MEDS: HUMALOG SUBQ SCH ×3 (06:28→22:27)
[2018-11-02 07:12] LABS: BASO# 0.02 X1000 (0.0-0.2); BASO% 0.2 % (0.0-0.8); EOS# 0.15 X1000 (0.0-0.7); EOS% 1.5 % (0.0-10.0); HEMATOCRIT 38.7 % (37.0-47.0); HEMOGLOBIN 11.8 g/dL (12.0-16.0); IMM GRAN# 0.03 X1000 (0.0-0.04); IMM GRAN% 0.3 % (0.0-0.5); LYMPH# 0.99 X1000 (1.2-3.4); LYMPH% 9.9 % (20.5-51.1); MCH 24.3 PG (27-31); MCHC 30.5 g/dL (33-37); MCV 79.6 FL (81-99); MPV 9.9 FL (7.4-10.4); NEUT# 8.14 X1000 (1.4-6.5); NEUT% 81.1 % (42.2-75.2); PLT 454 X1000 (130-400); RBC 4.86 XMIL (4.2-5.4); RDW 20.2 % (11.5-14.5); WBC 10.03 X1000 (4.8-10.8)
--- NOTE | 2018-11-02 07:12 | GENERAL SURGERY PROGRESS NOTE ---
DATE: 11/02/2018 SUBJECTIVE: Patient tolerated her prep. Seems like she is more cleared out. OBJECTIVE: Vital Signs: The patient is currently afebrile. Her vital signs are stable. General Examination: No acute distress. HEENT: Normocephalic, atraumatic. Pupils equal, round, reactive to light. Mucous membranes moist. Oropharynx benign. Neck: Supple. Trachea midline. Cardiovascular: Regular rate and rhythm. Lungs: Grossly clear. Abdomen: Soft, nontender, nondistended. Extremities: Moves all extremities. Neurologic: Grossly intact. Skin: No signs of jaundice. Vascular: All extremities perfused. Laboratory: Reviewed. CEA is pending. ASSESSMENT AND PLAN: A 68-year-old female with a colonic stricture. Colonic stricture. At this time, she did have her colonoscopy delayed today but it is scheduled for today when we start our procedure. It are doing it around lunchtime today. We will discuss with her the risks, benefits, and alternatives for the procedure. Risks including but not limited to bleeding, infection, risk of anesthesia, risk of an anastomotic complication, risk of injuring other organs discussed. She is aware. We will again plan on intervention today around lunch. We will try to make sure the lab collects the CEA. cc: Steve Burns MD
[2018-11-02 07:33] LABS: AGAP 22; ALB/GLOB RATIO 1.1; ALBUMIN 3.3 g/dL (3.5-5.0); ALKALINE PHOSPHATASE 167 U/L (32-104); BUN 5 mg/dL (8-22); CHLORIDE 101 mmol/L (98-107); COSMO 284; CREATININE 0.7 mg/dL (0.5-0.9); ESTIMATED GFR > 60; GLUCOSE 123 mg/dL (70-104); GOT 34 U/L (10-30); GPT 82 U/L (10-36); POTASSIUM 3.3 mmol/L (3.5-5.1); SODIUM 143 mmol/L (136-145); TCO2 20 mmol/L (25-35); TOTAL BILIRUBIN 0.35 mg/dL (0.20-1.00); TOTAL PROTEIN 6.4 g/dL (6.3-8.3)
[2018-11-02] MEDS ORDERED: INSULIN PEN NEEDLES ONE (07:44)
--- NOTE | 2018-11-02 09:29 | PROGRESS NOTE ---
DATE: 11/02/2018 SUBJECTIVE: The patient is resting in bed. No complaints at this time. Abdominal pain is under control. No vomiting. OBJECTIVE: Vital Signs: Temperature 98.1 degrees, heart rate 100, respiratory rate 16, blood pressure 164/60, O2 saturation 100% on 2 L nasal cannula. General Examination: This is a chronically ill-looking, 68-year-old female, lying in bed in no acute distress. HEENT: Head is normocephalic, atraumatic. Mucous membranes dry. Neck: Supple. No JVD noted. No carotid bruits. No lymphadenopathy. No thyromegaly. Cardiovascular exam: S1, S2 heard. No murmurs, gallops, or rubs. Regular rate and rhythm. Respiratory exam: Decreased air entry globally. No wheezing or crackles noted. Patient is not using any accessory muscles or having work of breathing. Abdomen: Soft, a little bit distended, but not tender to palpation. Bowel sounds present. No organomegaly. Extremities: No clubbing, cyanosis, or edema. Peripheral pulses present in both legs. Neurological exam: Patient alert and oriented x3. Moves 4 extremities. LABORATORY DATA: Reviewed. ASSESSMENT AND PLAN: 1. Ascending colon obstruction, most likely to be neoplastic. Patient has been arranged to have a colonoscopy today. Then, she has been scheduled to have a right colon resection. As per Dr. Burns, we will follow recommendations from both subspecialists. Patient continues to be on nasogastric tube to intermittent suction. 2. Transaminitis, getting better. There was a suspicion for possible metastasis for possible colon cancer, but considering that we are going to do colectomy, we may try to check it and will need to do a liver biopsy at that time. 3. Chronic obstructive pulmonary disease. The patient is not on any exacerbation. We will continue to monitor this patient closely. 4. Diabetes mellitus type 2. We will continue with Accu-Chek before meals and also at bedtime. 5. Hypertension. Blood pressure is under control with the same management. 6. Paroxysmal atrial fibrillation. The patient is back to sinus rhythm. We will continue to monitor. 7. Disposition: Depending upon the results of colonoscopy done, a right hemicolectomy. cc: Sixto Morton MD
[2018-11-02] MEDS: BASAGLAR SUBQ SCH (09:44)
[2018-11-02] MEDS: SODIUM CHLORIDE 0.9% INJ SCH ×2 (10:25→22:27)
[2018-11-02] MEDS: PROTONIX IV SCH ×2 (10:25→22:27)
[2018-11-02] MEDS: POTASSIUM CHLORIDE 20 MEQ/SWI 20 MEQ/100 ML IVPB IV SCH (22:30)
[2018-11-03] MEDS: DILAUDID IV PRN ×5 (00:02→21:32)
[2018-11-03] MEDS: POTASSIUM CHLORIDE 20 MEQ/SWI 20 MEQ/100 ML IVPB IV SCH (00:02)
[2018-11-03] MEDS: DUONEB (A & A) INH SCH ×4 (03:26→21:22)
[2018-11-03] MEDS: ZOSYN 3.375 GM in NS 50 ML IV SCH ×4 (03:53→20:43)
--- NOTE | 2018-11-03 06:18 | GENERAL SURGERY PROGRESS NOTE ---
DATE: 11/03/2018 SUBJECTIVE: Patient drank liquids yesterday despite being n.p.o. I have discussed this with her. We canceled her case. We have scheduled it for today. She has been n.p.o. since midnight. OBJECTIVE: Vital Signs: Patient is currently afebrile. Her vital signs are stable. General: No acute distress. Cardiovascular: Regular rate and rhythm. Lungs: Grossly clear. HEENT: Normocephalic, atraumatic. Pupils equal, round, reactive to light. Mucous membranes moist. Oropharynx benign. Neck: Supple. Trachea midline. Abdomen: Soft, nontender, nondistended. Extremities: Moves all extremities. Neurologic: Grossly intact. Skin: No signs of jaundice. Vascular: All extremities perfused. LABORATORY: Reviewed from yesterday. Of note, her CEA was 3.9. ASSESSMENT AND PLAN: A 68-year-old female with colonic stricture. At this time, given the fact she drank liquids yesterday, we postponed her case until today. Will plan on surgical intervention today. Did discuss with her yesterday the risks, benefits, alternatives and it is documented in her note. We will try to make sure she stays n.p.o. cc: Steve Burns MD
[2018-11-03] MEDS: ZOFRAN IV PRN ×2 (06:25→15:38)
[2018-11-03] MEDS: HUMALOG SUBQ SCH ×4 (06:33→15:43)
[2018-11-03] MEDS ORDERED: NORCURON ONE (07:46)
[2018-11-03] MEDS ORDERED: ROBINUL ONE ×2 (07:46→11:18)
[2018-11-03] MEDS ORDERED: QUELICIN (DOSE) ONE (07:46)
[2018-11-03] MEDS ORDERED: STERILE WATER INJ. ONE (07:46)
[2018-11-03] MEDS ORDERED: XYLOCAINE-MPF 2% ONE (07:46)
[2018-11-03] MEDS ORDERED: DIPRIVAN 1% ONE (07:49)
[2018-11-03] MEDS ORDERED: FENTANYL ONE (07:49)
[2018-11-03] MEDS ORDERED: VERSED ONE (07:49)
[2018-11-03 08:56] LABS: BASO# 0.03 X1000 (0.0-0.2); BASO% 0.4 % (0.0-0.8); EOS# 0.31 X1000 (0.0-0.7); EOS% 3.8 % (0.0-10.0); HEMATOCRIT 36.2 % (37.0-47.0); HEMOGLOBIN 10.9 g/dL (12.0-16.0); IMM GRAN# 0.02 X1000 (0.0-0.04); IMM GRAN% 0.2 % (0.0-0.5); LYMPH# 0.91 X1000 (1.2-3.4); LYMPH% 11.3 % (20.5-51.1); MCH 24.3 PG (27-31); MCHC 30.1 g/dL (33-37); MCV 80.8 FL (81-99); MONO# 0.64 X1000 (0.11-0.59); MONO% 7.9 % (1.7-9.3); MPV 9.5 FL (7.4-10.4); NEUT# 6.16 X1000 (1.4-6.5); NEUT% 76.4 % (42.2-75.2); PLT 452 X1000 (130-400); RBC 4.48 XMIL (4.2-5.4); RDW 20.5 % (11.5-14.5); WBC 8.07 X1000 (4.8-10.8)
[2018-11-03] MEDS: NS 1,000 ML IV SCH ×4 (09:10→21:32)
[2018-11-03] MEDS: BASAGLAR SUBQ SCH (09:10)
[2018-11-03] MEDS: PROTONIX IV SCH ×2 (09:18→20:44)
[2018-11-03] MEDS: SODIUM CHLORIDE 0.9% INJ SCH ×2 (09:18→20:44)
[2018-11-03] MEDS ORDERED: MARCAINE 0.5% ONE (09:56)
[2018-11-03] MEDS ORDERED: EXPAREL 1.3% ONE (09:56)
[2018-11-03 10:29] LABS: AGAP 14; ALB/GLOB RATIO 1.2; ALBUMIN 3.2 g/dL (3.5-5.0); ALKALINE PHOSPHATASE 127 U/L (32-104); BUN 3 mg/dL (8-22); CALCIUM 8.2 mg/dL (8.8-10.2); CHLORIDE 105 mmol/L (98-107); COSMO 282; CREATININE 0.6 mg/dL (0.5-0.9); ESTIMATED GFR > 60; GLUCOSE 109 mg/dL (70-104); GOT 21 U/L (10-30); GPT 55 U/L (10-36); POTASSIUM 3.8 mmol/L (3.5-5.1); SODIUM 143 mmol/L (136-145); TCO2 24 mmol/L (25-35); TOTAL BILIRUBIN 0.27 mg/dL (0.20-1.00); TOTAL PROTEIN 5.9 g/dL (6.3-8.3)
--- NOTE | 2018-11-03 10:34 | PROGRESS NOTE ---
DATE: 11/03/2018 SUBJECTIVE: The patient is seen at the edge of the bed. No complaints at this time. She did not eat anything since last night. OBJECTIVE: Vital Signs: Temperature 98.4 degrees, heart rate 86, respiratory rate 20, blood pressure 161/67, O2 saturation 100% 2 L nasal cannula. General Examination: This is a chronically ill-looking, 68-year-old female lying in bed in no acute distress. HEENT: Head is normocephalic, atraumatic. Mucous membranes dry. NG tube in place. It was not connected to suction. Neck: Supple, no JVD noted. No carotid bruits. No lymphadenopathy. No thyromegaly. Cardiovascular: S1, S2 heard. No murmurs, gallops, or rubs. Regular rate and rhythm. Respiratory: Decreased air entry globally. There is no wheezing or crackles noted in both pulmonary arevalo. Patient is not using any accessory muscles or having work of breathing. Abdomen: Soft, a little bit distended, but nontender to palpation. Bowel sounds present. No organomegaly. Extremities: No clubbing, cyanosis, or edema. Peripheral pulses present in both legs. Neurological: Patient alert oriented x3. Moves 4 extremities. LABORATORY DATA: CBC and BMP reviewed. ASSESSMENT AND PLAN: 1. Ascending colon obstruction most likely neoplastic. Reason why this patient was admitted to the hospital was because of this condition. All this done indicates an obstruction that most likely would be neoplastic. The patient has been scheduled to have a right colon resection. Dr. Burns is following this patient also. There was a colonoscopy arranged yesterday, but GI was not able to do that procedure because this patient ate. In any case, we will continue to monitor this patient closely and follow recommendations from both subspecialists. 2. Transaminitis. Getting better definitely. Initially, there was a plan to do an MRI of the abdomen to see if there is any possible metastasis in the liver, but I think we can do a liver biopsy if needed, and found out while in surgery possible metastasis. 3. Chronic obstructive pulmonary disease, patient is not on any exacerbation. We will continue to monitor this patient closely and providing breathing treatment as needed. 4. Diabetes mellitus type 2. We will continue with Accu-Cheks before meals and at bedtime and sliding scale insulin. 5. Hypertension. Blood pressure is under control. We will continue with the same management. 6. Paroxysmal atrial fibrillation. Patient is back to sinus rhythm. We will continue to monitor. 7. Disposition. Depending upon those results of right hemicolectomy and possible colonoscopy. cc: Sixto Morton MD
[2018-11-03] MEDS ORDERED: NEO-SYNEPHRINE ONE (10:37)
[2018-11-03] MEDS ORDERED: SODIUM CHLORIDE 0.9% 20 ML ONE (10:37)
[2018-11-03] MEDS ORDERED: ZOFRAN ONE (11:19)
[2018-11-03] MEDS ORDERED: NEOSTIGMINE ONE (11:20)
[2018-11-03 11:22] LABS: URINE SOURCE CATH
[2018-11-03] MEDS ORDERED: VENTOLIN HFA ONE (11:24)
[2018-11-03 11:36] LABS: BILIRUBIN URINE NEGATIVE (NEGATIVE); BLOOD URINE NEGATIVE (NEGATIVE); COLOR YELLOW; GLUCOSE URINE NEGATIVE (NEGATIVE); KETONE URINE 80 mg/dL (NEGATIVE); LEUKOCYTES URINE NEGATIVE (NEGATIVE); NITRITE URINE NEGATIVE (NEGATIVE); PH URINE 5.5; PROTEIN URINE 30 mg/dL (NEGATIVE); SP GRAVITY URINE 1.016; TURBIDITY URINE CLEAR (CLEAR); UR EPITHELIAL CELLS <10 /HPF (<10); URINE BACTERIA NEGATIVE /HPF; URINE RBC <10 /HPF (<10); URINE WBC <10 /HPF (<10); URINE YEAST NONE SEEN; UROBILINOGEN URINE NORMAL (NORMAL)
[2018-11-03] MEDS: MORPHINE ONE ×3 (13:38→13:54)
--- NOTE | 2018-11-03 13:50 | OPERATIVE NOTE ---
PROCEDURE DATE: 11/03/2018 PREOPERATIVE DIAGNOSIS: Obstructing colon mass at the ascending colon. POSTOPERATIVE DIAGNOSIS: Obstructing colon mass at the ascending colon. PROCEDURE: Open right hemicolectomy. SURGEON: Steve Burns MD DAY LIGHT RELIEF OPERATOR: Gurwinder King MD. Dr. King assisted with the entirety of the case. His presence was crucial for the completion of the case. ANESTHESIA: General endotracheal. INTRAOPERATIVE FINDINGS: Tattooed area was at the mid ascending colon. COMPLICATIONS: None at time of this dictation. ESTIMATED BLOOD LOSS: 200 mL. SPECIMENS REMOVED: Right colon. BRIEF HISTORY: A 68-year-old female, presenting with obstruction. She had a CT scan and a barium enema that confirmed a stricture. She did undergo a colonoscopy today that shows this mass, concerning for cancer. It was felt that she would benefit from a resection. The risks, benefits, and alternatives were discussed and all questions answered. DESCRIPTION OF PROCEDURE: After informed consent was obtained, the patient was brought to the operative theatre, transferred to the operative table, placed in supine position. General tracheal anesthesia was then performed without complication. The patient underwent a colonoscopy by Dr. Moran. Please see his dictation. The patient also went a TAP block by Anesthesia. After those were done, we prepped and draped the abdomen in sterile fashion. After the formal time-out, confirming patient and procedure, we turned our attention to the abdomen. We made a standard midline incision to enter into the abdomen. Upon entering the abdomen, we found adhesions in the right upper quadrant. We were able to dissect these down to identify the right colon. We found the area of the tattoo. We mobilized the right colon off the white line of Toldt, mobilized it up to the field. We stapled across the terminal ileum 5 cm in vivo from the ileocecal valve and then proceeded to take down the mesentery all the way up to the hepatic flexure and around to the transverse colon. We kept the middle colic intact. We transected the colon with the stapler. We then brought up the terminal ileum to the transverse colon and did a hand-sewn end-to-end anastomosis with good results in 2 layers. We then closed the mesenteric defect. We irrigated out the abdomen copiously until the suctioned fluid was clear. There was no active bleeding at the completion of the case. The abdomen was closed with a running looped PDS, started on either side for the fascia. We then closed the skin with bonita. The patient tolerated the procedure well and was transferred back to the recovery room in stable condition. cc: Steve Burns MD
--- NOTE | 2018-11-03 14:01 | OPERATIVE NOTE ---
PROCEDURE DATE: 11/03/2018 PROCEDURE: Colonoscopy with tattoo. PROVIDER: Cruz Moran MD INDICATIONS: Ascending colon stricture, partial bowel obstruction, preoperative assessment MEDICATIONS: General anesthesia. PROCEDURE: Prior to procedure, a history and physical was performed. The patient medication allergies were reviewed the patient's tolerance to previous anesthesia was also reviewed. The risks and benefits of the procedure and the sedation options and risks were discussed with the patient. All questions were answered, and informed consent was obtained. After reviewing the risks and benefits, the patient was deemed in satisfactory condition to undergo the procedure. The colonoscope was passed under direct visualization. Throughout the procedure , the patient's blood pressure, pulse, and oxygen saturations were monitored continuously. The colonoscope was introduced through the anus and advanced to 80 cm from the anal verge. The colonoscopy was accomplished without difficulty. The quality of the prep was fair. The patient tolerated the procedure well. COMPLICATIONS: No immediate complication. ESTIMATED BLOOD LOSS: None. FINDINGS: There was an obstructing malignant-appearing stricture found in the ascending colon approximately 80 cm from the anal verge. This was unable to be traversed given the severity of stricture. There appeared to be some abnormal mucosa and ulceration within the lumen of the stricture. 3 mL of Spot was injected submucosally to tattoo the site. The mucosa was evaluated upon withdrawal of the colonoscope. There were no obvious large lesions (>1cm) found in the remaining colon; cannot rule out any flat polyps or lesions <1cm. There was mild diverticulosis in the sigmoid colon. The rectum appeared normal on forward view. IMPRESSION: 1. Partially obstructing, malignant-appearing stricture was found in the ascending colon, tattooed. 2. Sigmoid diverticulosis RECOMMENDATIONS: - Agree with proceeding with right hemicolectomy and staging. - Postoperative management as per Surgery team. - The patient will need a postoperative colonoscopy in 3 months to rule out any small subcentimeter polyps in the remaining colon. We will sign off. Please call with any questions or concerns. [facility] [place] [facility]
[2018-11-03] MEDS: HEPARIN SUBQ SCH (20:43)
[2018-11-03] MEDS: PERIDEX MT SCH (20:43)
[2018-11-04] MEDS: PROTONIX IV SCH ×3 (00:11→21:05)
[2018-11-04] MEDS: HUMALOG SUBQ SCH ×5 (00:12→21:10)
[2018-11-04] MEDS: DILAUDID IV PRN ×6 (05:45→21:32)
[2018-11-04] MEDS: HEPARIN SUBQ SCH ×3 (06:21→21:05)
--- NOTE | 2018-11-04 06:23 | GENERAL SURGERY PROGRESS NOTE ---
DATE: 11/04/2018 SUBJECTIVE: Patient seems to be doing okay. OBJECTIVE: Vital Signs: Patient is currently afebrile. Her vital signs are stable. General: No acute distress. Cardiovascular: Regular rate and rhythm. Lungs: Grossly clear. Abdomen: Soft, appropriately tender. ASSESSMENT AND PLAN: A 68-year-old female status post open right hemicolectomy for what looks like a right colon cancer. Postoperative state at this time. Patient is currently postoperative day number 1. We will remove her nasogastric tube and give her a clear liquid diet. We will see how she does. We will follow up with pathology report. Otherwise, continue routine postoperative care. cc: Steve Burns MD
[2018-11-04] MEDS: DUONEB (A & A) INH SCH ×5 (06:36→23:22)
[2018-11-04] MEDS: ZOSYN 3.375 GM in NS 50 ML IV SCH ×4 (06:41→21:04)
[2018-11-04 07:07] LABS: BASO# 0.03 X1000 (0.0-0.2); BASO% 0.2 % (0.0-0.8); EOS# 0.04 X1000 (0.0-0.7); EOS% 0.3 % (0.0-10.0); HEMATOCRIT 39.5 % (37.0-47.0); HEMOGLOBIN 11.8 g/dL (12.0-16.0); IMM GRAN# 0.04 X1000 (0.0-0.04); IMM GRAN% 0.3 % (0.0-0.5); LYMPH# 1.18 X1000 (1.2-3.4); LYMPH% 7.5 % (20.5-51.1); MCH 24.3 PG (27-31); MCHC 29.9 g/dL (33-37); MCV 81.3 FL (81-99); MONO# 1.17 X1000 (0.11-0.59); MONO% 7.4 % (1.7-9.3); MPV 10.5 FL (7.4-10.4); NEUT# 13.37 X1000 (1.4-6.5); NEUT% 84.3 % (42.2-75.2); PLT 472 X1000 (130-400); RBC 4.86 XMIL (4.2-5.4); RDW 21.4 % (11.5-14.5); WBC 15.83 X1000 (4.8-10.8)
[2018-11-04 07:30] LABS: ALB/GLOB RATIO 1.1; ALBUMIN 2.6 g/dL (3.5-5.0); DIRECT BILIRUBIN 0.2 mg/dL (0.00-0.20); TOTAL BILIRUBIN 0.57 mg/dL (0.20-1.00)
[2018-11-04] MEDS: BASAGLAR SUBQ SCH (08:17)
[2018-11-04] MEDS: PERIDEX MT SCH ×2 (08:17→21:05)
[2018-11-04] MEDS: SODIUM CHLORIDE 0.9% INJ SCH ×2 (09:32→21:05)
[2018-11-04] MEDS: NS 1,000 ML IV SCH ×3 (10:08→16:20)
--- NOTE | 2018-11-04 11:02 | GASTROENTEROLOGY PROGRESS NOTE ---
DATE: 11/04/2018 SUBJECTIVE: The patient is resting in bed. She is postoperative day 1 after right hemicolectomy by Dr. Burns. She is recovering well. She has been passing flatus. Surgery is following. OBJECTIVE: Vital Signs: Temperature 98 degrees, pulse rate of 125 respiratory 20, blood pressure 102/58 saturating 98% on nasal cannula. Body weight of 160 pounds 4 ounces. BMI of 31.3 kg. General: lying in bed, in no acute distress HEENT: No pallor. No icterus. Nasal cannula in place. Neck: Supple. Abdomen: Discomfort from recent surgery. She has a midline surgical dressing. Extremities: No cyanosis, clubbing. Neurologic: She is alert, awake, oriented x3. LABS: 1. Hemoglobin and hematocrit is 11.9 and 39.5, white count of 15.83 platelet count 472,000. 2. Chemistries show total bilirubin 0.57, direct of 0.2, AST 16, ALT 37, alkaline phosphatase 98, total protein is 5, albumin of 2.6. 3. Total protein is 5 albumin of 2.6 IMPRESSION AND PLAN: 1. Status post open right hemicolectomy for possible right-sided colon cancer. We follow up on the final pathology. 2. The patient did have partly obstructing malignant appearing stricture in the ascending colon, which was tattooed on colonoscopy yesterday by , 3. Sigmoid diverticulosis. Patient will continue on current management plan per the surgical team. We will sign off at this time. The patient will follow up in the clinic as needed and in 1 year for possible colonoscopy for surveillance. 4. COPD, aware. 5. Type 2 diabetes aware, 6. Paroxysmal atrial fibrillation, aware. 7. Mildly liver enzymes. We will check hepatitis panel, chronic liver disease work up and her imaging in the ultrasound had showed evidence of unremarkable ultrasound and the CT scan had showed liver is grossly unremarkable. She has a high BMI of 31.3. This could be contributing to fatty liver disease. This needs to be followed as an outpatient once he recovers from surgery. 8. The problems were discussed with the patient and all questions were answered. Please call us with any further questions. cc: Deon Benitez MD MTDD
[2018-11-04 11:57] LABS: IRON SATURATION 4 %; TIBC 239 ug/dL; TOTAL IRON 10 ug/dL (49-151); UNBOUND IRON 229 ug/dL (112-346)
--- NOTE | 2018-11-04 14:43 | EKG Report ---
Test Performed on : 11/04/2018 2:21:59 PM Test Reason : Tachycardia Blood Pressure : / mmHG Vent. Rate : 113 BPM Atrial Rate : 113 BPM P-R Int : 190 ms QRS Dur : 090 ms QT Int : 290 ms P-R-T Axes : 029 098 -59 degrees QTc Int : 397 ms Sinus tachycardia. Rightward axis Cannot rule out Anterior infarct , age undetermined Abnormal ECG When compared with ECG of 28-APR-2018 17:53, Vent. rate has increased BY [address] no longer elevated in Inferior leads Non-specific change in ST segment in Lateral leads Nonspecific T wave abnormality now evident in Inferior leads Nonspecific T wave abnormality now evident in Anterolateral leads Unconfirmed Result
--- NOTE | 2018-11-04 16:47 | PROGRESS NOTE ---
DATE: 11/04/2018 INTERVAL HISTORY: Patient underwent open right-sided hemicolectomy after colonoscopy had found a neoplastic appearing stricture in distal ascending colon. She tolerated the procedure well. SUBJECTIVE: The patient is denying chest pain, shortness of breath or palpitation. She denies any nausea, vomiting. She was able to drink clear liquids. She denies any undue abdominal pain. OBJECTIVE: Vital Signs: Currently vitals detect temperature of 98, pulse of 119 per minute, respiratory rate of 20 per minute, blood pressure of 108/58. She is saturating 93% on 3 L nasal cannula. General: Does not appear in any acute distress. She has a Keating catheter in place. ENT: Oral cavity is dry. Lungs: Air entry bilaterally equal. She has decreased lung sounds bilaterally without any wheeze, rhonchi, or crackles. Cardiovascular: S1, S2 normal. Systolic murmur, crescendo/decrescendo affecting base of the heart. No rub or gallop. Abdomen: Obese, soft. There is a midline laparotomy scar, well dressed without soaking. She has mild generalized tenderness. She has mild lower extremity edema and Keating catheter in place. LABS: Suggestive of leukocytosis, microcytic anemia. Normal platelet count, except a slightly higher liver function test suggestive of resolution of transaminitis, which has significantly improved. No microbiological data. No new imaging. ASSESSMENT AND PLAN: 1. Ascending colon near obstruction neoplastic mass, likely because of colon cancer, status post colonoscopy and open right hemicolectomy. Today is postoperative day 1. Surgery on board. Patient is on clear liquid diet. We will await final pathology results. 2. Transaminitis. There was no obvious hepatic lesion noted as per the surgery note. Her transaminitis is already improving. Gastroenterology has ordered further workup for primary biliary cirrhosis. Hepatitis panel, autoimmune hepatitis and alpha-1 antitrypsin deficiency syndrome. We will follow up with results. 3. History of chronic obstructive pulmonary disease on home 3 liters oxygen, currently not in exacerbation. Continue to monitor. 4. History of paroxysmal atrial fibrillation, currently tachycardic, but in sinus rhythm. Continue to monitor. I am holding anticoagulation and I will resume it 48 hours after surgery. 5. History of insulin-dependent diabetes mellitus. Currently, blood sugars have been in acceptable range most of the times. We will continue her on glargine and sliding scale insulin. 6. Essential hypertension, currently in acceptable range. DISPOSITION: Patient remains inside the hospital for postoperative course management. I will consider discontinuing antibiotics in the next 24 to 48 hours and decrease intravenous fluid rate, considering patient is able to take by mouth. Plan of care was discussed with her. All of her questions have been answered. cc: Evgeny Sahu MD
[2018-11-05] MEDS: DILAUDID IV PRN ×6 (02:13→21:42)
[2018-11-05] MEDS: ZOSYN 3.375 GM in NS 50 ML IV SCH ×2 (02:13→09:42)
[2018-11-05] MEDS: DUONEB (A & A) INH SCH ×4 (03:55→21:44)
[2018-11-05] MEDS: HEPARIN SUBQ SCH ×3 (04:10→21:12)
[2018-11-05] MEDS: NS 1,000 ML IV SCH (04:10)
[2018-11-05] MEDS: HUMALOG SUBQ SCH ×4 (06:12→21:13)
--- NOTE | 2018-11-05 06:37 | GENERAL SURGERY PROGRESS NOTE ---
DATE: 11/05/2018 SUBJECTIVE: Patient doing well. She said she has passed gas. She is not sick to her stomach. OBJECTIVE: Vital Signs: Patient is currently afebrile. Vital signs have been stable. General: No acute distress. Cardiovascular: Some mild tachycardia. Lungs: Grossly clear. Abdomen: Soft, appropriately tender. No peritoneal signs. Bowel sounds auscultated. ASSESSMENT AND PLAN: A 68-year-old female, currently postoperative day #2 from open right hemicolectomy for obstructing colon mass. Postoperative state at this time. We will advance her to a full liquid diet, we will see how she does. My partner will follow her through the weekend. We can likely stop her antibiotics here in the near future. cc: Steve Burns MD
[2018-11-05 07:10] LABS: CALCIUM 7.6 mg/dL (8.8-10.2); MAGNESIUM 1.1 mg/dL (1.5-2.7); PHOSPHORUS 2.1 mg/dL (2.7-4.5); POTASSIUM 3.5 mmol/L (3.5-5.1)
[2018-11-05 07:24] LABS: BASO# 0.03 X1000 (0.0-0.2); BASO% 0.3 % (0.0-0.8); EOS# 0.29 X1000 (0.0-0.7); EOS% 2.8 % (0.0-10.0); HEMATOCRIT 30.5 % (37.0-47.0); HEMOGLOBIN 9.1 g/dL (12.0-16.0); IMM GRAN# 0.02 X1000 (0.0-0.04); IMM GRAN% 0.2 % (0.0-0.5); LYMPH% 12.5 % (20.5-51.1); MCH 24.1 PG (27-31); MCHC 29.8 g/dL (33-37); MCV 80.9 FL (81-99); MONO# 0.79 X1000 (0.11-0.59); MONO% 7.6 % (1.7-9.3); MPV 10.1 FL (7.4-10.4); NEUT# 7.95 X1000 (1.4-6.5); NEUT% 76.6 % (42.2-75.2); PLT 357 X1000 (130-400); RBC 3.77 XMIL (4.2-5.4); RDW 20.6 % (11.5-14.5); WBC 10.38 X1000 (4.8-10.8)
[2018-11-05] MEDS: PERIDEX MT SCH ×2 (09:41→21:13)
[2018-11-05] MEDS: PROTONIX IV SCH (09:41)
[2018-11-05] MEDS: SODIUM CHLORIDE 0.9% INJ SCH (09:41)
[2018-11-05] MEDS: BASAGLAR SUBQ SCH (09:41)
[2018-11-05] MEDS: CYMBALTA PO SCH (09:42)
[2018-11-05 13:37] LABS: HEPATITIS PROFILE ACUTE SEE COMMENTS
[2018-11-05] MEDS ORDERED: K-PHOS PO ONE (13:55)
--- NOTE | 2018-11-05 16:12 | PROGRESS NOTE ---
DATE: 11/05/2018 INTERVAL HISTORY: No acute events. Her EKG had suggested sinus tachycardia. She did have some flat ST-segment in the lateral and inferior leads. Today her tachycardia is better. SUBJECTIVE: Patient denies nausea, vomiting, or abdominal pain. She has been eating a full liquid diet. She is passing intermittent gas. Has not had a bowel movement yet. VITALS: Currently temperature 97.6 degrees, pulse 107, respiratory rate 20, blood pressure 118/73, saturating 94% on room air. PHYSICAL EXAMINATION: Appears morbidly obese, not in any acute distress.Lungs: Air entry bilaterally equal. Decreased lung sound bilaterally without any wheeze, rhonchi, or crackles. Cardiovascular: S1, S2 normal. Systolic murmur decrescendo affecting right second intercostal space. No rub or gallop. Abdomen: Obese, soft. Midline laparotomy scar well dressed without any soaking. She has mild generalized tenderness around the scar. Bilateral lower extremity edema and Keating catheter. LABS: Suggestive of no leukocytosis, anemia of acute blood loss, microcytosis, hypomagnesemia, hypocalcemia, hypophosphatemia, otherwise electrolytes suggest no other acute electrolyte abnormalities. EKG as mentioned above. ASSESSMENT AND PLAN: 1. Ascending colon near obstructing neoplastic mass, likely because of colon cancer status post colonoscopy and open right hemicolectomy. Today is postoperative day 2. Surgery is on board. The patient is on full liquid diet, tolerating well. Await final pathology results. 2. Transaminitis. Transaminitis is already resolving. Alpha 1 antitrypsin level is in fact elevated. Her ceruloplasmin level is within normal limits. LEWIS screen was negative and antimitochondrial antibody was undetectable. Hepatitis panel was also nonreactive. Her transaminitis has already resolved. 4. History of chronic obstructive pulmonary disease and chronic hypoxic respiratory failure on home 3 L oxygen. Currently not in acute exacerbation. Continue to monitor. 5. History of paroxysmal atrial fibrillation currently tachycardic but in sinus rhythm. Continue to monitor and I will resume anticoagulation with enoxaparin today at the time of discharge. My goal is to start her back on her home Eliquis. 6. History of insulin-dependent diabetes mellitus, currently blood sugars in acceptable range. Continue current dose of glargine and sliding scale insulin. 7. Acute blood loss anemia. No need of transfusion at the moment. Start patient on iron and multivitamins. 8. Postoperative tachycardia. The patient has been on intravenous fluids. Her tachycardia has been decreasing. I will stop the intravenous fluids considering worsening bilateral lower extremity edema. 9. Disposition: Patient remains inside the hospital for postoperative course management. If continues to do better my plan is to discharge her early next week pending surgery recommendation. If she is fairly functional, she may not need rehab. Plan of care was discussed with her. All of her questions have been answered. cc: Evgeny Sahu MD MTDD
[2018-11-05] MEDS: MAGNESIUM SULFATE 2 GM/S.W.I. 2 GM/50 ML IVPB IV SCH ×3 (16:17→21:10)
[2018-11-05] MEDS: KLOR-CON PO SCH ×2 (16:18→23:41)
[2018-11-05] MEDS: MAG-OX PO SCH ×2 (16:18→21:13)
[2018-11-05] MEDS: ZOFRAN IV PRN (21:41)
[2018-11-05] MEDS ORDERED: KLOR-CON PO SCH (21:45)
[2018-11-06] MEDS: DILAUDID IV PRN ×3 (00:49→16:23)
[2018-11-06] MEDS: DUONEB (A & A) INH SCH ×4 (03:15→21:24)
[2018-11-06] MEDS: PRILOSEC PO SCH (06:29)
[2018-11-06] MEDS: HUMALOG SUBQ SCH ×3 (06:30→16:12)
[2018-11-06] MEDS ORDERED: MULTI-VITAMIN PO SCH (09:00)
[2018-11-06] MEDS: BASAGLAR SUBQ SCH (09:52)
[2018-11-06] MEDS: PERIDEX MT SCH (09:52)
[2018-11-06] MEDS: MAG-OX PO SCH (09:52)
[2018-11-06] MEDS: LOVENOX SUBQ SCH (09:52)
[2018-11-06] MEDS: FERROUS SULFATE PO SCH (09:52)
[2018-11-06] MEDS: CYMBALTA PO SCH (09:52)
[2018-11-06] MEDS: ZOFRAN IV PRN ×2 (10:44→16:22)
[2018-11-06 15:07] LABS: BASO# 0.09 X1000 (0.0-0.2); BASO% 0.6 % (0.0-0.8); EOS# 0.39 X1000 (0.0-0.7); EOS% 2.8 % (0.0-10.0); HEMATOCRIT 37.4 % (37.0-47.0); HEMOGLOBIN 10.9 g/dL (12.0-16.0); IMM GRAN# 0.05 X1000 (0.0-0.04); IMM GRAN% 0.4 % (0.0-0.5); LYMPH# 1.16 X1000 (1.2-3.4); LYMPH% 8.2 % (20.5-51.1); MCH 24.7 PG (27-31); MCHC 29.1 g/dL (33-37); MCV 84.8 FL (81-99); MONO# 0.86 X1000 (0.11-0.59); MONO% 6.1 % (1.7-9.3); MPV 9.8 FL (7.4-10.4); NEUT# 11.56 X1000 (1.4-6.5); NEUT% 81.9 % (42.2-75.2); PLT 488 X1000 (130-400); RBC 4.41 XMIL (4.2-5.4); RDW 21.5 % (11.5-14.5); WBC 14.11 X1000 (4.8-10.8)
[2018-11-06 15:48] LABS: AGAP 15; BUN 7 mg/dL (8-22); CALCIUM 8.1 mg/dL (8.8-10.2); CHLORIDE 103 mmol/L (98-107); COSMO 265; CREATININE 0.9 mg/dL (0.5-0.9); ESTIMATED GFR > 60; GLUCOSE 110 mg/dL (70-104); POTASSIUM 4.6 mmol/L (3.5-5.1); SODIUM 133 mmol/L (136-145); TCO2 15 mmol/L (25-35)
[2018-11-06 15:48] LABS: ANISOCYTOSIS 1+; LARGE PLATELETS OCCASIONAL; LYMPHS 13 % (21-51); MONO 3 % (1-9); SEGS 84 % (42-75); TARGET CELLS OCCASIONAL
--- NOTE | 2018-11-06 18:19 | GENERAL SURGERY PROGRESS NOTE ---
DATE: 11/06/2018 SUBJECTIVE: Doing well, bowel function, tolerating a diet, no significant pain. She is in the chair. No fevers. Pulse 89, blood pressure 129/53. Incision intact. Abdomen is obese but soft. White count yesterday was normal at 10. ASSESSMENT/PLAN: 68-year-old female status post right colectomy. We will remove her Keating catheter and otherwise increase her mobility, hopefully home soon. cc: Sharath Stoddard MD
--- NOTE | 2018-11-06 18:59 | PROGRESS NOTE ---
DATE: 11/06/2018 INTERVAL HISTORY: No acute events overnight. The patient's tachycardia is getting better. She denies any complaints. The patient is sitting in the chair at the time of my evaluation. Denies any complaints. I discussed with her about stopping intravenous fluid. I answered all of her questions. Currently the patient denies any chest pain, shortness of breath. She is occasionally nauseous but has not had any vomiting. She is passing gas and she had a small bowel movement as well. VITALS: Temperature of 98.6 degrees, pulse 97, respiratory rate 20, blood pressure 138/62, saturating 90 to 94 percent on 3 L nasal cannula. PHYSICAL EXAMINATION: General: Does not appear in acute distress. Oral cavity is moist. Lungs: Air entry bilaterally equal, no wheeze or rhonchi. Decreased air entry in bilateral bases with mild inspiratory crackles. Cardiovascular: S1, S2 normal. Systolic crescendo-decrescendo murmur affecting right second intercostal space. No rub or gallop. Abdomen: Obese, soft. Midline laparotomy scar, well dressed without any soaking. She has general mild tenderness around the scar. Bilateral lower extremity edema and right upper extremity edema. Her Keating catheter has been removed. LABS: No new labs today. CBC and BMP are pending. ASSESSMENT AND PLAN: 1. Ascending colon near obstructing neoplastic mass, likely because of colon cancer, status post colonoscopy and open right hemicolectomy. Today is postoperative day 3. Continue patient on full liquid diet and advance as per surgery recommendation. The patient had a bowel movement and is passing gas. Awaiting final pathology results. 2. Acute blood loss anemia. No need of transfusion at the moment. Follow up with CBC, her postop tachycardia has also been improved. She is no longer on intravenous fluids. 3. History of cough, COPD, and chronic hypoxic respiratory failure on home 3 L oxygen. Currently not in any acute exacerbation. Continue albuterol ipratropium nebulization every 6 hours. 4. History of paroxysmal atrial fibrillation. However, currently in sinus tachycardia. Resume anticoagulation with enoxaparin and at the time of discharge, we will restart her on her home Eliquis. She is not listed to be taking any rate control medication at the moment. 5. History of insulin-dependent diabetes mellitus, currently in acceptable range on glargine and sliding scale. 6. Others: Transaminitis has improved. 7. Disposition: Patient remains inside the hospital for postoperative course monitoring. She continues to do better. She is able to come out of bed and go to her chair. If she continues to do better, my plan is to discharge her home with home physical therapy. The patient's is able to help her. I anticipate discharge in the next 48 hours. Plan of care was discussed with her. All of her questions have been answered. cc: Evgeny Sahu MD
[2018-11-07] MEDS: ZOFRAN IV PRN (00:06)
[2018-11-07] MEDS: DILAUDID IV PRN (00:07)
[2018-11-07] MEDS: LOVENOX SUBQ SCH ×2 (00:51→10:41)
[2018-11-07] MEDS: MAG-OX PO SCH ×2 (00:51→10:40)
[2018-11-07] MEDS: PERIDEX MT SCH ×2 (01:08→10:41)
[2018-11-07] MEDS: HUMALOG SUBQ SCH ×5 (01:08→21:41)
[2018-11-07] MEDS: DUONEB (A & A) INH SCH ×4 (03:33→22:55)
[2018-11-07] MEDS: PRILOSEC PO SCH (06:52)
[2018-11-07 07:56] LABS: BASO# 0.02 X1000 (0.0-0.2); BASO% 0.2 % (0.0-0.8); EOS# 0.36 X1000 (0.0-0.7); EOS% 3.8 % (0.0-10.0); HEMATOCRIT 32.4 % (37.0-47.0); HEMOGLOBIN 9.7 g/dL (12.0-16.0); IMM GRAN# 0.03 X1000 (0.0-0.04); IMM GRAN% 0.3 % (0.0-0.5); LYMPH# 0.99 X1000 (1.2-3.4); LYMPH% 10.6 % (20.5-51.1); MCH 24.1 PG (27-31); MCHC 29.9 g/dL (33-37); MCV 80.4 FL (81-99); MONO# 0.79 X1000 (0.11-0.59); MONO% 8.4 % (1.7-9.3); MPV 10.2 FL (7.4-10.4); NEUT# 7.17 X1000 (1.4-6.5); NEUT% 76.7 % (42.2-75.2); PLT 419 X1000 (130-400); RBC 4.03 XMIL (4.2-5.4); RDW 20.6 % (11.5-14.5); WBC 9.36 X1000 (4.8-10.8)
[2018-11-07 08:21] LABS: AGAP 15; BUN 6 mg/dL (8-22); CHLORIDE 103 mmol/L (98-107); COSMO 273; CREATININE 0.8 mg/dL (0.5-0.9); ESTIMATED GFR > 60; GLUCOSE 101 mg/dL (70-104); MAGNESIUM 1.7 mg/dL (1.5-2.7); PHOSPHORUS 2.4 mg/dL (2.7-4.5); SODIUM 138 mmol/L (136-145); TCO2 20 mmol/L (25-35)
[2018-11-07] MEDS ORDERED: SENOKOT PO PRN (10:29)
--- NOTE | 2018-11-07 10:35 | GENERAL SURGERY PROGRESS NOTE ---
DATE: 11/07/2018 SUBJECTIVE: Feeling okay. She is resting comfortably. No fevers. No tachycardia. OBJECTIVE: Vitals: Blood pressure 146/66. Abdomen: Soft, nontender, nondistended. LABORATORY: White count 9, hematocrit 32. Creatinine 0.8. ASSESSMENT AND PLAN: A 68-year-old female status post right colectomy for colon cancer. We will continue postoperative course. Plan for home in the next 24 hours or so as she is doing very well. cc: Sharath Stoddard MD
[2018-11-07] MEDS: FERROUS SULFATE PO SCH (10:40)
[2018-11-07] MEDS: CYMBALTA PO SCH (10:40)
[2018-11-07] MEDS: BASAGLAR SUBQ SCH (10:41)
--- NOTE | 2018-11-07 10:47 | PROGRESS NOTE ---
DATE: 11/07/2018 INTERVAL HISTORY: No acute overnight events. Heart tachycardia has been improving. SUBJECTIVE: Patient is feeling fine. She is feeling a little nauseous, but no vomiting. She has some abdominal discomfort. She had a bowel movement yesterday. She is passing gas. I talked with her about advancing her diet today. She has some nasal congestion. She is feeling sleepy and she is waiting for her lunch. OBJECTIVE: General: Does not appear in any acute distress. Vital Signs: Currently temperature of 98.2, pulse 99, respiratory rate 20, blood pressure 146/66, saturating 93% on 3 L nasal cannula. HEENT: She does have nasal turbinate edema affecting especially left nostril. Oral cavity is moist. Lungs: Air entry bilaterally equal. No wheeze, rhonchi, or crackles. Cardiovascular: S1, S2 normal. No murmur, rub, or gallop, except systolic crescendo-decrescendo murmur affecting right second intercostal space. Abdomen: Obese, soft. Midline laparotomy scar with bonita on. No oozing. There is generalized tenderness in the belly, especially around the incision site. Bilateral lower extremity edema. Slight right upper extremity edema. : Keating catheter has been removed. LABORATORY: CBC suggests no leukocytosis. Hemoglobin of 9.7, platelet count of 419,000. She does have microcytosis. Electrolytes within acceptable range. She does have hypophosphatemia. MICROBIOLOGY: No new microbiological data. IMAGING: No new imaging data. ASSESSMENT AND PLAN: 1. Ascending colon near-obstructing neoplastic mass, likely because of colon cancer status post colonoscopy, open right sigmoidectomy. Today is postoperative day 4. Advance diet to GI soft diet as patient has been tolerating full liquid diet for 2 days. The patient had a bowel movement at nighttime as well and is passing gas. Awaiting final pathology results. 2. Acute blood-loss anemia with microcytosis. No need of transfusion at the moment. Continue iron sulfate with multivitamin. 3. Postoperative tachycardia has been resolved. 4. History of cough, COPD, chronic hypoxic respiratory failure on home 3 L nasal cannula oxygen and seasonal allergies. Currently not in any acute exacerbation of her COPD. Continue albuterol-ipratropium nebulization every 6 hours and add Flonase nasal spray. 5. History of paroxysmal atrial fibrillation, currently had sinus tachycardia based on EKG. Continue enoxaparin and switch it to Eliquis at the time of discharge. She is not on any rate control medication. Heart rate in acceptable range. 6. History of insulin-dependent diabetes mellitus, currently in acceptable range on glargine and sliding scale insulin. 7. Others, transaminitis has improved. DISPOSITION: The patient remains inside the hospital. If she is able to tolerate a GI soft diet today and has a bowel movement tomorrow, my plan is to discharge her hopefully in next 24 to 48 hours. I will appreciate Surgery recommendations on that. Plan of care discussed with the patient and all of her questions have been answered. cc: Evgeny Sahu MD
[2018-11-07] MEDS: FLONASE NAS SCH (11:13)
[2018-11-07] MEDS: THERA M PLUS PO SCH (12:15)
[2018-11-07] MEDS: OXY IR PO PRN (15:14)
[2018-11-08] MEDS: OXY IR PO PRN ×4 (00:03→23:17)
[2018-11-08] MEDS: PERIDEX MT SCH ×3 (00:03→23:18)
[2018-11-08] MEDS: LOVENOX SUBQ SCH ×3 (00:03→23:16)
[2018-11-08] MEDS: DUONEB (A & A) INH SCH ×4 (03:52→21:30)
[2018-11-08] MEDS: HUMALOG SUBQ SCH ×3 (06:23→23:17)
--- NOTE | 2018-11-08 07:06 | GENERAL SURGERY PROGRESS NOTE ---
DATE: 11/08/2018 SUBJECTIVE: The patient seems to be doing well, tolerating a regular diet, and having bowel movements. No major issues. OBJECTIVE: Vital Signs: The patient is currently afebrile. Her vital signs are stable. General Examination: No acute distress. Cardiovascular: Regular rate and rhythm. Lungs: Grossly clear. Abdomen: Soft, obese, appropriately tender. Incision is healing well. Bowel sounds auscultated. ASSESSMENT/PLAN: A 68-year-old female, currently postoperative day #5 from open right hemicolectomy for obstructing colon mass. Postoperative state. At this time, the patient is doing well. She is on a gastrointestinal soft diet, which she is tolerating. She is having return of bowel function. From a surgical point of view, she can be discharged home. I will need to see her back in the office in 1 to 2 weeks. cc: Steve Burns MD
[2018-11-08] MEDS: PRILOSEC PO SCH (07:53)
[2018-11-08] MEDS: THERA M PLUS PO SCH (09:49)
[2018-11-08] MEDS: FERROUS SULFATE PO SCH (09:49)
[2018-11-08] MEDS: BASAGLAR SUBQ SCH (09:50)
[2018-11-08] MEDS: CYMBALTA PO SCH (09:50)
[2018-11-08] MEDS: FLONASE NAS SCH (09:51)
[2018-11-08] MEDS ORDERED: LASIX IV ONE (12:24)
--- NOTE | 2018-11-08 15:34 | PROGRESS NOTE ---
DATE: 11/08/2018 INTERVAL HISTORY: No acute events overnight. The patient has been tolerating a GI soft diet without any trouble. She has had a bowel movement. She is complaining of some discomfort in her abdomen, which I explained to her will go away with time as the healing process progresses. She is also complaining of feeling short of breath today and she thinks that whenever she goes to the bathroom, the shortness of breath gets really, really bad. She states that she would like to remain inside the hospital until her shortness of breath resolves and would likely go home tomorrow. OBJECTIVE: Vital signs: Temperature of 98.5 degrees, pulse 100 per minute, respiratory rate 18 per minute, blood pressure 151/64, saturating 95% on 3 L nasal cannula. General: Appears in mild distress because of shortness of breath. Her is at bedside. HEENT: Oral cavity is moist. Lungs: Air entry bilaterally equal. No wheeze, rhonchi. Bibasilar crackles which are inspiratory. Cardiovascular: S1, S2 normal. Tachycardic. No rub or gallop, except systolic crescendo-decrescendo murmur affecting right second intercostal space. Abdomen: Obese, soft. Midline laparotomy scar with bonita on. No oozing. No redness. Generalized tenderness in the belly which is better than before. The patient is sitting in the chair. Extremities: Bilateral slight lower extremity edema. : Keating catheter has been removed. LABS: Suggestive of no new labs today. No new microbiological data. No new imaging. ASSESSMENT AND PLAN: 1. Ascending colon near-obstructing neoplastic mass, likely because of colon cancer status post colonoscopy, open right hemicolectomy. Today is postoperative day 5. The patient is tolerating a GI soft diet without any issues and has been having good bowel movements. Awaiting final pathology results. She should follow up with GI and surgeon as an outpatient. 2. Acute blood loss anemia with microcytosis without any need for transfusion. Continue iron sulfate and multivitamin. Her postoperative tachycardia has resolved. 3. Shortness of breath, likely in the setting of chronic obstructive pulmonary disease without any wheeze on examination, so unlikely to be in acute exacerbation, with chronic hypoxic respiratory failure on home 3 L nasal cannula oxygen and seasonal allergies. Continue albuterol ipratropium nebulizations every 6 hours. Add Symbicort which patient has been taking at home and continue Flonase nasal spray. I will give her a 1 time dose of Lasix considering crackles on my examination and positive input and output since admission to help with her shortness of breath. 4. History of paroxysmal atrial fibrillation, currently sinus tachycardia on EKG. Continue enoxaparin for primary CVA prophylaxis and switch to Eliquis at the time of discharge. Her heart rate has been less than 110 on most occasions. 5. History of insulin-dependent diabetes mellitus. Currently in acceptable range on current glargine and sliding scale insulin. Her transaminitis has improved with negative workup with alpha-1 antitrypsin and ceruloplasmin, LEWIS, antimitochondrial antibody, and negative hepatitis panel. 6. Disposition. I am awaiting patient's shortness of breath to get better. Hopefully with intravenous Lasix, it could improve. Once patient starts feeling better, my plan is to discharge her home with follow up outpatient with surgery. Plan of care discussed with her. All of her questions have been answered. Her is at bedside, who is the surrogate decision maker. cc: Evgeny Sahu MD
[2018-11-08] MEDS: SYMBICORT 160/4.5 MICROGM INHALER INH SCH ×2 (16:28→19:26)
[2018-11-09] MEDS: DUONEB (A & A) INH SCH ×2 (03:07→09:50)
[2018-11-09] MEDS: PRILOSEC PO SCH ×2 (05:56→06:45)
[2018-11-09] MEDS: OXY IR PO PRN ×2 (05:56→13:51)
[2018-11-09] MEDS: HUMALOG SUBQ SCH (06:44)
[2018-11-09 07:08] LABS: BASO# 0.02 X1000 (0.0-0.2); BASO% 0.2 % (0.0-0.8); EOS# 0.34 X1000 (0.0-0.7); EOS% 3.9 % (0.0-10.0); HEMATOCRIT 30.4 % (37.0-47.0); HEMOGLOBIN 9.6 g/dL (12.0-16.0); IMM GRAN# 0.04 X1000 (0.0-0.04); IMM GRAN% 0.5 % (0.0-0.5); LYMPH# 1.23 X1000 (1.2-3.4); MCHC 31.6 g/dL (33-37); MCV 79.2 FL (81-99); MONO# 0.91 X1000 (0.11-0.59); MONO% 10.4 % (1.7-9.3); MPV 10.1 FL (7.4-10.4); NEUT# 6.25 X1000 (1.4-6.5); PLT 458 X1000 (130-400); RBC 3.84 XMIL (4.2-5.4); RDW 20.3 % (11.5-14.5); WBC 8.79 X1000 (4.8-10.8)
[2018-11-09 07:23] LABS: AGAP 18; BUN 4 mg/dL (8-22); CALCIUM 7.9 mg/dL (8.8-10.2); CHLORIDE 97 mmol/L (98-107); COSMO 276; CREATININE 0.6 mg/dL (0.5-0.9); ESTIMATED GFR > 60; GLUCOSE 94 mg/dL (70-104); MAGNESIUM 1.3 mg/dL (1.5-2.7); PHOSPHORUS 2.6 mg/dL (2.7-4.5); POTASSIUM 3.4 mmol/L (3.5-5.1); SODIUM 140 mmol/L (136-145); TCO2 25 mmol/L (25-35)
--- NOTE | 2018-11-09 07:53 | GENERAL SURGERY PROGRESS NOTE ---
DATE: 11/09/2018 SUBJECTIVE: Patient seems to be doing about the same. Her main issue now is respiratory. OBJECTIVE: Vital Signs: Patient is currently afebrile. Her vital signs stable. General: No acute distress. Resting. Cardiovascular: Regular rate and rhythm. Lungs: Grossly clear. Abdomen: Soft, appropriately tender. Incision healing well. ASSESSMENT AND PLAN: A 68-year-old female, currently postoperative day #6 from an open right hemicolectomy for obstructing colon mass. Postoperative state: At this, time patient seems to be doing okay. Pathology did show invasive colonic adenocarcinoma. Margins negative for cancer and lymph nodes negative, which makes her T3 N0. I will consult Oncology, but I suspect the patient probably will not need any additional therapy. cc: Steve Burns MD
[2018-11-09] MEDS ORDERED: LASIX IV ONE (08:18)
[2018-11-09 08:33] VITALS: BP 157/59
[2018-11-09] MEDS: SYMBICORT 160/4.5 MICROGM INHALER INH SCH (09:51)
[2018-11-09] MEDS: FERROUS SULFATE PO SCH (10:33)
[2018-11-09] MEDS: CYMBALTA PO SCH (10:33)
[2018-11-09] MEDS: PERIDEX MT SCH (10:33)
[2018-11-09] MEDS: LOVENOX SUBQ SCH (10:33)
[2018-11-09] MEDS: THERA M PLUS PO SCH (10:33)
[2018-11-09] MEDS: BASAGLAR SUBQ SCH (10:34)
[2018-11-09] MEDS: FLONASE NAS SCH (10:34)
--- NOTE | 2018-11-09 11:49 | HEMO/ONC CONSULTATION ---
DATE: 11/09/2018 REASON FOR CONSULTATION: We are being consulted for further evaluation of the patient's colon cancer. HISTORY OF PRESENT ILLNESS: Ms Marti is a 68-year-old female that presented to the emergency department on 10/28/2018 complaining of abdominal pain, constipation, and vomiting for the last 4 days. The patient had taken Metamucil, milk of magnesium and magnesium citrate without any relief. The patient had a CT scan while in the emergency room that showed obstruction of the large descending colon and the patient was admitted at that time for further evaluation and management. Since the patient has been admitted, the patient underwent a right hemicolectomy, and pathology has shown T3 N0 invasive colonic adenocarcinoma, moderately differentiated. PAST MEDICAL HISTORY: COPD on home oxygen, hypertension, type 2 diabetes mellitus, chronic kidney disease stage 3, hiatal hernia, carpal tunnel syndrome, anxiety and depression. PAST SURGICAL HISTORY: Had a cholecystectomy, great toe surgery, full dental extraction, carpal tunnel surgery. FAMILY HISTORY: Heart disease and type 2 diabetes mellitus. SOCIAL HISTORY: Stopped smoking about 6 years ago. Denies any alcohol or illicit drug use. ALLERGIES: Aspirin and sulfa. HOME MEDICATIONS: 1. Tylenol. 2. Eliquis. 3. Cymbalta. 4. Ferrous sulfate. 5. Glucotrol. 6. Soliqua. 7. Losartan/hydrochlorothiazide. 8. Glucophage. 9. Thera M Plus. 10. Senokot. REVIEW OF SYSTEMS: Negative unless noted in the HPI. PHYSICAL EXAMINATION: Vital Signs: Temperature 98.1 degrees, heart rate 100, respiratory rate 20, blood pressure is 157/59, saturation 93% on room air. General: Patient is awake, lying in bed, no acute distress noted. HEENT: Anicteric. Pupils PERRLA. Mucous membranes moist. Neck: Supple. Trachea midline. No JVD. Lymph node survey: No palpable lymphadenopathy. Cardiovascular: S1, S2. Regular rate and rhythm. Lungs: Bilateral breath sounds. Clear to auscultation. Abdomen: Soft, mildly tender. Incision healing well. Skin: Warm, dry and intact. Neurologic: Alert and oriented x3. No focal deficits noted. LABORATORY DATA: White count is 8.79, hemoglobin 9.6, hematocrit 30.4, platelets are 458. Potassium 3.4, BUN is 4, creatinine 0.6. RADIOLOGY RESULTS: Abdomen and pelvis CT showed mild to moderate partial bowel obstruction. The point of obstruction appears to be in the ascending colon where there is focal narrowing and subtle wall thickening. Infection or nonneoplastic process should be considered. Small volume of free fluid in the pelvis. Abdominal ultrasound shows incidental right pleural effusion, otherwise unremarkable abdominal ultrasound. ASSESSMENT AND PLAN: 1. T3 N0 moderately differentiated colonic adenocarcinoma: The patient is status post surgery 6 days ago. The patient will continue to heal. The patient will follow up in the office as an outpatient for further evaluation. We will continue to monitor. 2. Colonic obstruction, removal, status post surgery: Continue recommendations per General Surgery on healing. 3. Anemia: Hemoglobin is 9.6, hematocrit 30.4. Continues to be stable. The patient will continue on oral iron. Continue recommendations per Primary Medical Team. Transfuse as needed. 4. Chronic obstructive pulmonary disease: Continue recommendations per Primary Medical Team. 5. History of paroxysmal atrial fibrillation. Continue recommendations per Primary Medical Team. 6. Diabetes mellitus. Continue recommendations per Primary Medical Team. 7. Deep venous thrombosis prophylaxis. Continue Lovenox as ordered. Have patient continue to get out of bed as much as possible. Dictated by LILLIAN Francis for Jermaine Anderson MD Patient seen and examined. Patient presented with colonic obstruction and has undergone surgery for ascending colon adenocarcinoma. Pathology reveals node- negative disease. She is slowly recovering from surgery. She is also anemic. We will see her back in clinic in the next 2 weeks and reassess her. Well plan further management accordingly. Jermaine Anderson M.D. cc: LILLIAN Francis MD [facility]
--- NOTE | 2018-11-09 12:30 | DISCHARGE SUMMARY ---
ADMISSION DATE: 10/29/2018 DISCHARGE DATE: 11/09/2018 DISCHARGE DIAGNOSES: 1. Ascending colon near obstructing neoplastic mass suggestive of invasive colonic adenocarcinoma, moderately differentiated extending into pericolonic adipose tissue. Margins were negative for carcinoma. 2. Acute blood loss anemia with microcytosis. 3. Acute respiratory distress 5. Post operative tachycardia 4. Chronic hypoxic respiratory failure with history of COPD. 4. History of paroxysmal atrial fibrillation. 5. History of insulin-dependent diabetes mellitus. 6. History of essential hypertension. 7. Transaminitis on admission. CONSULTATIONS DURING HOSPITALIZATION: 1. Dr. Moran. 2. Dr. Jermaine Anderson. 3. Dr. Steve Burns. PROCEDURES DURING HOSPITALIZATION: 1. Colonoscopy by Dr. Cruz Moran suggestive of partially obstructing malignant-appearing stricture in the ascending colon and sigmoid diverticulosis. 2. Open right hemicolectomy on 10/29/[address] Steve Burns. DISCHARGE MEDICATIONS: 1. Duloxetine 60 mg daily. 2. Apixaban 5 mg b.i.d. 3. Metformin 1500 mg daily. 4. Glipizide 10 mg b.i.d. 5. Losartan hydrochlorothiazide 1 tablet p.o. daily. 6. Insulin glargine lixisenatide 30 units subcu daily. 7. Ferrous sulfate 325 mg daily. 8. Sennoside 2 tablets p.o. daily. 9. Multivitamin with minerals 1 tablet daily. 10. Acetaminophen 650 mg p.o. q.6 hours p.r.n.. VITAL SIGNS: At the time of discharge, temperature 98.1 degrees, pulse 100 per minute, respiratory 20 per minute, blood pressure 157/59 and saturating 93% on 3 L nasal cannula. PHYSICAL EXAMINATION: The patient does not appear in any acute distress. Oral cavity is moist. Lungs: Air entry bilaterally equal without wheeze, rhonchi, or crackles. Cardiovascular: S1, S2 normal. No murmur, rub, or gallop except systolic crescendo-decrescendo murmur affecting right second intercostal space. Abdomen: Obese and soft. She has midline laparotomy scar with bonita on without any oozing or redness. She had generalized tenderness in the belly which was better than before. She was sitting in the chair. She has bilateral lower extremity edema. SIGNIFICANT LABS DURING HOSPITAL ADMISSION: On presentation, she had leukocytosis of 15,000. At the time of discharge, it was 8000. Her hemoglobin was stable, though it was 12.8 on presentation. At the time of discharge, it was 9.6. She had a platelet count of 458,000. At the time of discharge, her electrolytes suggested potassium of 3.4, chloride of 97, and magnesium of 1.3 for which she was given prescriptions for potassium and magnesium. SIGNIFICANT IMAGING DURING HOSPITALIZATION: 1. Abdomen and pelvis CT had suggested [id number] partial bowel obstruction. The point of obstruction appeared to be ascending colon where there was focal narrowing and subtle wall thickening. 2. There was small volume free fluid layering the pelvis, and other acute findings. 3. Barium enema had suggested abrupt narrowing involving the distal ascending colon corresponding to stricture seen on the CT with no contrast decreased proximal to this. 4. Abdomen ultrasound had suggested incidental right pleural effusion. Unremarkable otherwise. HOSPITAL COURSE: Ms. Marti is a 68-year-old lady with past medical history of chronic obstructive pulmonary disease on home 3 liters oxygen, essential hypertension, and diabetes, who came in with complaints of intractable nausea and vomiting with abdominal pain of about 7 days duration. Her abdominal pain was cramping in nature, and she had seen her regular doctor 2 days prior to arrival, who had ordered abdominal x-ray which was detected to have a lot of stools and constipation. She was started on MiraLAX and magnesium citrate. However, she had vomiting after this. Enema did not help either. Her abdominal pain continued to escalate with persistent vomiting, and that is why she came to the emergency room. She did not have any evidence of bleeding. In the emergency room, CT scan of the abdomen and pelvis was performed with a barium enema later on which had suggested acute narrowing of ascending colon for which she underwent a colonoscopy which had suggested near partial colonic obstruction in the ascending colon region so she eventually underwent a right open hemicolectomy. The surgical specimen came out to be invasive colonic adenocarcinoma of about 2.2 cm moderately differentiated extending into pericolonic adipose tissue with negative margins. The lymph nodes were also negative, so it was T3N0. The patient's postoperative course was unremarkable. She was able to tolerate liquid diet, and later on GI soft diet without any trouble and had a bowel movement. She did have abdominal discomfort which was well controlled on pain medications. She did develop a drop in her hemoglobin from 12 on presentation to 9 at the time of discharge. However, it was still within acceptable range and she did not require any blood transfusion. She did have an episode of shortness of breath, which was thought to be in the setting of her COPD without any wheeze on examination. She was saturating adequate on 3 L nasal cannula. She was continued on albuterol ipratropium nebulization every 6 hours with Symbicort and doses of Lasix were given to help with her crackles on the lung examination, bilateral pedal edema following which she was feeling better. For her history of paroxysmal atrial fibrillation, she had sinus tachycardia on EKG though. She was treated with subcutaneous enoxaparin. At the time of discharge, she was restarted on her Eliquis. For her insulin-dependent diabetes mellitus, she was continued on glargine and sliding scale. At the time of discharge, she was resumed on her home medication regimen. DISPOSITION: Patient was provided detailed instructions about following up with the surgeon, doctor and oncologist. All of her questions were answered. TIME SPENT: More than 30 minutes were spent in discharging this patient. cc: Evgeny Sahu MD MTDRicky
[2018-11-09] MEDS ORDERED: MBX SOLUTION MT PRN (14:00)
== END 2018-11-09 14:25 | disposition home or self-care (01) | DRG 330 ==
LOC: ED 22:31 → EDIPHOLD 10-29 06:08 → SUATTDRO 10-29 06:08 → 4N 10-29 11:31
PROVIDERS: ATTEND Internal Medicine
CPT/HCPCS: 74000; 74018; 74019; 74020; 74177; 74270; 76700; 80048; 80053; 80074; 80076; 81001; 82103; 82378; 82390; 82607; 82728; 82746; 82948; 83036; 83516; 83540; 83550; 83605; 83690; 83735; 84100; 84443; 84484; 85025; 86038; 86039; 88307; 93005; 93010; 94640; 94761; 94799; 96361; 96365; 96375; 99285; A9270; C9113; C9290; J0330; J1170; J1644; J1650; J1815; J1940; J2250; J2270; J2370; J2405; J2543; J2550; J3010; J3475; J3480; J7030; Q9958; Q9967; S0020; S0164; XXXXX

== ENCOUNTER 2019-09-29 09:23 | Day surgery (SDC) ==
[2019-09-26 10:28] LABS: BASO# 0.15 X1000 (0.0-0.2); BASO% 1.3 % (0.0-0.8); EOS# 0.27 X1000 (0.0-0.7); EOS% 2.4 % (0.0-10.0); HEMATOCRIT 45.3 % (37.0-47.0); HEMOGLOBIN 14.3 g/dL (12.0-16.0); IMM GRAN# 0.06 X1000 (0.0-0.04); IMM GRAN% 0.5 % (0.0-0.5); LYMPH# 2.79 X1000 (1.2-3.4); LYMPH% 24.8 % (20.5-51.1); MCH 28.7 PG (27-31); MCHC 31.6 g/dL (33-37); MCV 90.8 FL (81-99); MONO# 0.81 X1000 (0.11-0.59); MONO% 7.2 % (1.7-9.3); MPV 10.5 FL (7.4-10.4); NEUT# 7.16 X1000 (1.4-6.5); NEUT% 63.8 % (42.2-75.2); PLT 306 X1000 (130-400); RBC 4.99 XMIL (4.2-5.4); WBC 11.24 X1000 (4.8-10.8)
[2019-09-26 10:42] LABS: CALCIUM 9.6 mg/dL (8.8-10.2); POTASSIUM 4.2 mmol/L (3.5-5.1)
[~2019-09-29 09:23] MED LIST: DIPRIVAN 1% ONE; FENTANYL ONE
[2019-09-29] MEDS ORDERED: REGLAN ONE (09:51)
[2019-09-29] MEDS ORDERED: PEPCID ONE (09:51)
[2019-09-29] MEDS ORDERED: KEFZOL 1 GM/D5W 2 GM/100 ML IVPB ONE (09:51)
[2019-09-29] MEDS ORDERED: LR 1,000 ML ONE (09:51)
[2019-09-29] MEDS ORDERED: SENSORCAINE-MPF 0.5%/EPI 1:200,000 ONE (10:57)
[2019-09-29] MEDS ORDERED: VALIUM ONE (11:11)
[2019-09-29] MEDS ORDERED: QUELICIN (DOSE) ONE (11:12)
[2019-09-29] MEDS ORDERED: NEO-SYNEPHRINE ONE (11:48)
[2019-09-29] MEDS ORDERED: ZOFRAN ONE (11:55)
[2019-09-29] MEDS ORDERED: ROBINUL ONE (11:55)
[2019-09-29] MEDS ORDERED: DECADRON ONE (11:55)
[2019-09-29] MEDS ORDERED: XYLOCAINE-MPF 2% ONE (11:55)
[2019-09-29] MEDS ORDERED: ZEMURON ONE ×2 (12:46)
[2019-09-29] MEDS ORDERED: NEOSTIGMINE ONE (13:29)
[2019-09-29] MEDS ORDERED: DUONEB (A & A) INH ONE (14:10)
[2019-09-29] MEDS ORDERED: DUONEB (A & A) ONE (14:16)
[2019-09-29] MEDS ORDERED: NORCO-10 ONE (14:51)
--- NOTE | 2019-09-29 14:56 | OPERATIVE NOTE ---
PROCEDURE DATE: 09/29/2019 PREOPERATIVE DIAGNOSIS: Incisional ventral hernia. POSTOPERATIVE DIAGNOSIS: Incarcerated incisional ventral hernia times two. PROCEDURE: Laparoscopic robot-assisted repair of incarcerated incisional ventral hernia times two with placement of mesh (Bard Ventralex 8 cm x 12 cm mesh and 8 cm circular mesh). SURGEON: Steve Burns MD. GOLF COURSE MANAGER NONE.: ANESTHESIA: General endotracheal. OPERATIVE FINDINGS: Multiple defects but in 2 main clusters. There was a small serosal tear which we repaired with Lembert stitch. COMPLICATIONS: None at time of this dictation. ESTIMATED BLOOD LOSS: 30 mL. SPECIMENS REMOVED: None. BRIEF HISTORY: A 69-year-old female with a history of right hemicolectomy, who had an incisional hernia. She wanted it repaired. The risks, benefits, and alternatives for the procedure were discussed. Risks including, but not limited to bleeding, infection, risk of anesthesia, risk of recurrence, risk of bowel complications. We did discuss her calculated CeDAR score of 10% risk for complication. All questions answered. DESCRIPTION OF PROCEDURE IN DETAIL: After informed consent was obtained, the patient was brought to the operative theatre, transferred to the operating table in supine position. General endotracheal anesthesia was then performed without complication. A formal time- out was then performed confirming patient, date, procedure. All were in agreement. At that time, attention was given to the abdomen. We have put our first trocar in the left upper quadrant using Optiview technique. It was initially 5 mm and then we transitioned it to a 12. We then placed 2 more trocars; 1 in the subxiphoid, 1 in the left lower quadrant. Using these, we docked the robot. I turned my attention to the robot console. There was a significant amount of adhesions noted along the abdominal wall. At the incision, we potentially took down the adhesions. There was one small serosal injury, which we repaired with Lembert stitch of 3-0 silk with good results. This injury was unavoidable given the dense amount of adhesions to the abdominal wall from her previous surgeries. When we took down the defect, she had almost like a Cymraes cheese-like process occurring in her abdominal wall. There were 2 main clusters, and I felt as though I could close each with a piece of mesh. We initially closed the majority of the defects primarily with the nonabsorbable V- LOC suture, but we could not get everything close together. The patient's abdominal wall was probably not supportive of a component separation and extended it looked like even to a shortened rectus, so I did not think we could get good component separation, so I closed the defect as much as I could. I then did an underlay technique with mesh. The superior cluster we closed with an 8 cm x 12 cm elliptical piece of mesh with good overlap at least 2 cm circumferentially. We secured it in place with a running V-LOC suture starting in multiple locations. This was good approximation and coverage. We then did an underlay for the inferior cluster with an 8 cm circular mesh. They did overlap somewhat, but again they were 2 separate areas. We secured this in place in a standard fashion. We examined the abdomen. I did not see any other injury to the bowel. I did not see any drainage of succus or stool. There was no active bleeding. We removed all trocars, disconnected insufflation. Pneumoperitoneum was released. We closed all skin incisions with 4-0 Monocryl after removing all trocars. Given the complexity of this case, I am going to watch the patient overnight. I will get the hospitalist to see her given her multiple medical comorbidities, and I updated the family about the procedure. cc: MD CESAR Ji
[2019-09-29] MEDS ORDERED: ZOFRAN IV PRN (16:00)
[2019-09-29] MEDS ORDERED: PROVENTIL PO PRN (16:51)
[2019-09-29] MEDS ORDERED: DUONEB (A & A) INH PRN (18:05)
[2019-09-29] MEDS: NORCO-10 PO PRN (18:23)
[2019-09-29] MEDS: GLUCOPHAGE PO SCH (18:25)
[2019-09-29] MEDS ORDERED: LOVENOX SUBQ SCH (19:00)
[2019-09-29] MEDS ORDERED: MORPHINE IV PRN (20:23)
[2019-09-29] MEDS: SYMBICORT 160/4.5 MICROGM INHALER INH SCH (20:25)
--- NOTE | 2019-09-29 20:29 | CONSULTATION ---
DATE OF CONSULTATION: 09/29/2019 CHIEF COMPLAINT: This patient just had surgery done by Dr. Burns, ventral hernia repair. HISTORY OF PRESENT ILLNESS: A 69-year-old female with a past medical history of T3, N0 moderately differentiated colonic adenocarcinoma status post open right hemicolectomy done on 11/03/[address] Burns. She also has a past medical history of COPD, hypertension, diabetes, CKD, anxiety, atrial fibrillation and pulmonary hypertension, her last echocardiogram was done in 2018 here that showed pulmonary hypertension, but showed increased pulmonary arterial pressure, but excellent left ventricular function. She has been followed by Dr. Burns, and after the right hemicolectomy, this patient had an incisional hernia that she wanted to be repaired and it has been done today. The procedure was a laparoscopic robot-assisted repair of incarcerated incisional ventral hernia x2 with placement of mesh measuring 8 cm x 12 cm and also a circular mesh of 8 cm. The patient tolerated well the procedure. She is back to the room. She is completely awake, alert, and oriented x3. We have placed this patient back on her home medications. I will put her on breathing treatment as needed. As per the patient, she stopped taking her warfarin last Thursday. I will likely restart this tomorrow, but today I will give her a dose of Lovenox in the meantime, and like I said, probably tomorrow, we will start this patient on warfarin, the patient seems to be doing good. I do not think she needs antibiotics. I will get a new set of lab work in the morning. PHYSICAL EXAMINATION: Vital signs: Temperature 97.5 degrees, pulse 94, respiratory rate 16, blood pressure 115/82, oxygen saturation 93 on room air. HEENT: Head normocephalic, no trauma. PERRLA. Neck: Supple. No JVD. No masses. Central trachea. Chest: Clear to auscultation. No wheezing. No rales. Abdomen: Is soft. Generalized tenderness to palpation. She has a binder, which I will not remove at this moment. Decreased bowel sounds, but present. Extremities: No clubbing, no cyanosis. Neurological: The patient is alert and oriented x3. No focal deficits. REVIEW OF SYSTEMS: She denies nausea, vomiting, diarrhea, constipation. No chest pain. No shortness of breath. All the 14 point review of systems were reviewed. All of them negative except as per HPI. PAST MEDICAL HISTORY: 1. T3, N0 moderately differentiated colonic adenocarcinoma status post right hemicolectomy. Presented now with incisional hernia that has been repaired today. 2. Hypertension, dyslipidemia, COPD, CKD, anxiety, atrial fibrillation, pulmonary hypertension. FAMILY HISTORY: Negative for cancer, heart disease and type 2 diabetes. SOCIAL HISTORY: She stopped smoking around 6 to 7 years ago. No drugs. No alcohol. She is and her has cancer as well, I believe lung cancer. SURGICAL HISTORY: Right hemicolectomy, she has some pins in her great toe. She had full teeth extraction for dentures and carpal tunnel syndrome repair. LABORATORY: Glucose 142 today. Laboratory from 09/26/2019: WBC 11.2, hemoglobin 14.3, hematocrit 45.3, platelet count 306,000. Sodium 141, potassium 4.2, chloride 100, bicarbonate 27, BUN 20, creatinine 1, glucose 242, calcium 9.6. ASSESSMENT AND PLAN: 1. T3, N0 moderately differentiated colonic adenocarcinoma, status post right hemicolectomy on 11/03/2018. Presented now with ventral hernia, which has been repaired by Dr. Steve Burns. She seems to be doing well, but we will restart all her medications. She will be placed on a regular diet and monitor. If the blood pressure gets better, probably I will put this patient tomorrow on a low-salt diet. 2. Hypertension. Continue home medication. 3. Diabetes. Continue a home medications. I will add pattern of blood sugar and sliding scale insulin. 4. Atrial fibrillation. Her rate is controlled. I do not see any medication listed to control the heart rate. She is on warfarin at home, which I will continue tomorrow. Today, she will get a simple dose of Lovenox prophylactically. 5. Chronic kidney disease. This is her baseline. 6. History of pulmonary hypertension. Aware. 7. History of anxiety. Continue home medication. 8. Chronic obstructive pulmonary disease. Continue with the same management. She has been placed back on her home medications. cc: Aman Green MD
[2019-09-29] MEDS: PERIDEX MT SCH (20:47)
[2019-09-29] MEDS: HUMULIN R SUBQ SCH (20:47)
[2019-09-29] MEDS: ROBAXIN PO PRN (20:48)
[2019-09-30] MEDS: NORCO-10 PO PRN ×4 (00:12→13:56)
--- NOTE | 2019-09-30 05:47 | GENERAL SURGERY PROGRESS NOTE ---
DATE: 09/30/2019 SUBJECTIVE: Patient seems to be doing okay. She did have some pain last night. OBJECTIVE: Vital Signs: Patient is currently afebrile. Her vital signs are stable. General: No acute distress. Cardiovascular: Regular rate and rhythm. Lungs: Grossly clear. Abdomen: Soft. Appropriately tender. Binder in place. ASSESSMENT AND PLAN: A 69-year-old female postoperative day #1 from laparoscopic robot assisted repair of incarcerated incisional ventral hernia. Postoperative state at this time. She did well overnight. I did want to watch her overnight given the complexity of her repair, and having repaired the small bowel in one spot. From my point of view, she seems to be doing okay all things considered. If okay with the hospitalist, we will try to get her out and discharge her today. cc: MD Aman Ji MD
[2019-09-30] MEDS: HUMULIN R SUBQ SCH (06:42)
[2019-09-30 07:18] LABS: BASO# 0.01 X1000 (0.0-0.2); BASO% 0.1 % (0.0-0.8); HEMATOCRIT 42.2 % (37.0-47.0); HEMOGLOBIN 13.1 g/dL (12.0-16.0); IMM GRAN# 0.02 X1000 (0.0-0.04); IMM GRAN% 0.2 % (0.0-0.5); LYMPH# 1.37 X1000 (1.2-3.4); LYMPH% 13.2 % (20.5-51.1); MCH 28.7 PG (27-31); MCV 92.3 FL (81-99); MONO# 0.73 X1000 (0.11-0.59); MPV 10.9 FL (7.4-10.4); NEUT# 8.27 X1000 (1.4-6.5); NEUT% 79.5 % (42.2-75.2); PLT 298 X1000 (130-400); RBC 4.57 XMIL (4.2-5.4)
[2019-09-30 07:25] LABS: INR 1.07
[2019-09-30 07:35] LABS: ALB/GLOB RATIO 1.2; ALBUMIN 3.6 g/dL (3.5-5.0); CALCIUM 8.7 mg/dL (8.8-10.2); CREATININE 1.2 mg/dL (0.5-0.9); MAGNESIUM 1.5 mg/dL (1.5-2.7); PHOSPHORUS 3.4 mg/dL (2.7-4.5); POTASSIUM 5.1 mmol/L (3.5-5.1); TOTAL BILIRUBIN 0.43 mg/dL (0.20-1.00); TOTAL PROTEIN 6.6 g/dL (6.3-8.3)
[2019-09-30] MEDS ORDERED: CYMBALTA PO SCH (09:00)
[2019-09-30] MEDS ORDERED: COUMADIN PO SCH (09:00)
[2019-09-30] MEDS ORDERED: HYZAAR 50/12.5 MG PO SCH (09:00)
[2019-09-30] MEDS ORDERED: GLUCOTROL PO SCH (09:00)
[2019-09-30] MEDS: SYMBICORT 160/4.5 MICROGM INHALER INH SCH (09:17)
--- NOTE | 2019-09-30 09:18 | PROGRESS NOTE ---
DATE: 09/30/2019 SUBJECTIVE: The patient reports feeling fine. There is mild pain in the surgical area. No other complaints. OBJECTIVE: Vital Signs: Temperature 98.3 degrees, heart rate 73, respiratory rate 20, blood pressure 115/66, O2 saturation 96% on 2 L nasal cannula.General: This is a 69-year-old female lying in bed, in no acute distress. Cardiovascular: S1, S2 heard. No murmurs, gallops, or rubs. Regular rate and rhythm. Respiratory: Clear bilaterally to auscultation. No work of breathing or using accessory muscles. Abdomen: Soft. Tenderness to palpation. The patient has abdominal binder. Decreased bowel sounds. Extremities: No clubbing, cyanosis, or edema. Peripheral pulses present in both legs. Neurological: Patient alert oriented x3. Moves 4 extremities. LABORATORY DATA: Reviewed. ASSESSMENT/PLAN: 1. Colonic adenocarcinoma status post right hemicolectomy. 2. Ventral hernia status post laparoscopic surgical repair. 3. Hypertension. 4. Diabetes mellitus type 2. 5. Chronic atrial fibrillation. 6. Chronic kidney disease stage 2. At this point, patient is medically stable. We have continued with home medications for blood pressure, diabetes. Blood pressure has been a little bit higher. We are going to change insulin from regular insulin to Humalog sliding scale. Heart rate is under control for atrial fibrillation. Creatinine is at baseline. She is not feeling anxious so at this point. We will continue to monitor this patient closely. Apparently, the patient is going to be discharged today. We agreed with the plan. Patient is medically stable. We will continue to monitor this patient if she is still in the hospital tomorrow. cc: iSxto Morton MD MTDD
[2019-09-30] MEDS: GLUCOPHAGE PO SCH ×2 (09:31→12:08)
[2019-09-30] MEDS: PERIDEX MT SCH (09:33)
[2019-09-30] MEDS ORDERED: HUMALOG SUBQ SCH (11:00)
[2019-09-30 11:43] VITALS: BP 118/93
[2019-09-30] MEDS ORDERED: HEPARIN IV ONE (14:26)
[2019-09-30] MEDS: ROBAXIN PO PRN (14:43)
== END 2019-09-30 15:25 | disposition home or self-care (01) ==
LOC: 4N 09:23 → OR 09:23
PROVIDERS: ATTEND Surgery